=== PATIENT | female | born 1950 | race Caucasian/White ===

== ENCOUNTER 2024-06-21 08:58 | Emergency (ER) | payer MEDICARE, SELFPAY ==
[2024-06-21 09:17] VITALS: BP 151/84; PULSE 63; RESP 20; TEMP 36.6; O2SAT 99
--- NOTE | 2024-06-21 09:29 | ED_ITS ---
HPI - General Adult General Chief complaint: Upper Respiratory Infection Stated complaint: flu like symptoms Time Seen by Provider: 06/21/24 09:29 Source: patient Mode of arrival: ambulatory Limitations: no limitations History of Present Illness HPI narrative: 74-year-old female patient presents to the [facility] with complaints of flu- like symptoms for the past 5 days. Patient states she has had body aches and chills but denies any fevers she is aware of. Patient states she has had a lot of sinus congestion, runny nose, coughing. Denies sore throat. Denies ear pain. Denies any chest pain shortness of breath. Denies any abdominal pain, nausea, vomiting or diarrhea. Related Data Home Medications ?Medication ?Instructions ?Recorded ?Confirmed ?Last Taken ?Type cholecalciferol (vitamin D3) 50 50 mcg PO DAILY 12/05/22 03/03/24 Unknown History mcg (2,000 unit) tablet Allergies Allergy/AdvReac Type Severity Reaction Status Date / Time prochlorperazine AdvReac Severe Unknown Verified 06/21/24 09:16 promethazine AdvReac Severe Unknown Verified 06/21/24 09:16 Eweanub-VTC-HxB Reductase AdvReac Intermediate Muscle Pain Verified 06/21/24 09:16 Inhibitor COMPAZINE AdvReac Severe neurologica Uncoded 06/21/24 09:16 l dermerol AdvReac Severe Nausea and Uncoded 06/21/24 09:16 Vomiting Review of Systems Review of Systems: CONSTITUTIONAL: Denies fever, Positive body aches and chills, denies sweats. EYES: Denies visual changes, redness, or discharge. ENT: positive rhinorrhea, congestion, denies sore throat, or otalgia. CARDIOVASCULAR: Denies chest pain, palpitations, or edema. RESPIRATORY: positive cough , denies dyspnea. GASTROINTESTINAL: Denies abdominal pain, nausea, vomiting, or diarrhea. GENITOURINARY: Denies dysuria or hematuria. SKIN: Denies rash or itching. MUSCULOSKELETAL: Denies back pain, joint pain, or myalgia. NEUROLOGIC: positive headache, denies numbness, or weakness. PSYCHIATRIC: Denies anxiety or depression. [facility] Past Medical History Medical History Dyslipidemia History of cataract Acute hemorrhoid Edema Vertigo 1992 started GERD (gastroesophageal reflux disease) Peripheral neuropathy Anxiety Depression 1987 Surgical History Surgical History History of foot surgery neuroma right foot 2018 History of bunionectomy of right great toe 2006 History of hysterectomy with bilateral oophorectomy 2000 History of tubal ligation 1982 History of appendectomy 1964 History of tonsillectomy 1953 History of bilateral cataract extraction 2011 S/P cholecystectomy 1983 S/P carpal tunnel release 1995, 2000 History of gastric stapling 1979 Social History Social History Social History: somewhat confident with medical forms 02/25/24 Smoking packs per day: 1 Smoking cigarettes per day: 20.0 Years smoked: 20 Smoking pack-years: 20.00 Smoking status: Former smoker Tobacco type: cigarettes Second hand tobacco smoke exposure: Yes Alcohol intake: former Substance use: never Substance use type: does not use Do You Feel Safe in your Home?: Yes Lack of Transportation: No Lack of Food: Never True Current Housing: I Have Housing Concerned About Future Housing: No Difficulty Paying Gas/Electric Bills: No Difficulty Paying for Meds: No Currently Unemployed: No Education: High School Diploma/GED Difficulty w/ Childcare or Family Care: No Living arrangements: with family Occupation/Education: retired Gender identity (if verbalized by the patient): Female Sexual Orientation (if Verbalized by the Patient): Straight or Heterosexual Comments At the time of my signature I agree with nursing past medical history, surgical, social, and family history. There is no relevant family history pertinent to the presenting complaint. Exam Narrative: GENERAL: Well-appearing, well-nourished, and in no acute distress. HEAD: Normocephalic, atraumatic. EYES: PERRLA and EOMI. ENT: Nares with erythema edema noted bilaterally, no rhinorrhea or epistaxis. Mucous membranes moist. posterior pharynx with some postnasal drip present, no t onsillar enlargement, no exudates or lesions present. Bilateral TMs are clear no erythema or foreign bodies the canal. NECK: Supple. No lymphadenopathy CHEST: Clear to auscultation. No respiratory distress. Patient able talk in clear complete sentences. HEART: Regular rate and rhythm. No murmur heard. Normal peripheral pulses. ABDOMEN: Soft, nontender, nondistended, normal active bowel sounds. EXTREMITIES: Normal range of motion. No edema. SKIN: Warm, dry, no rash. NEURO: No focal deficits. Alert and oriented x3. Course Course Level of Care: Express Care Visit Reevaluation(s) Reevaluation #1: re-evaluated patient I read negative for COVID a and influenza. Discussed with her this is most likely a viral URI will take couple days to get over and courage her to take yyfw-yep-wmjgnla medications to help with her symptoms. If patient develops worsening symptoms such as high fever, chest pain shortness of breath I have highly recommend that she follow-up with her primary doctor the ER for evaluation Date: 06/21/24 Time: 10:02 Vital Signs Vital signs: Vital Signs Temperature 36.6 C 06/21/24 09:17 Pulse Rate 63 06/21/24 09:17 Respiratory Rate 20 06/21/24 09:17 Blood Pressure 151/84 H 06/21/24 09:17 Pulse Oximetry 99 06/21/24 09:17 Oxygen Delivery Room Air 06/21/24 09:17 Temperature 36.6 C 06/21/24 09:17 Pulse Rate 63 06/21/24 09:17 Respiratory Rate 20 06/21/24 09:17 Blood Pressure 151/84 H 06/21/24 09:17 Pulse Oximetry 99 06/21/24 09:17 Oxygen Delivery Room Air 06/21/24 09:17 vital signs reviewed. The patient has been informed that they may have pre-hypertension or Hypertension based on a BP reading in the department. I recommend that the patient call the primary care provider listed on their discharge instructions or a physician of their choice this week to arrange follow up for further evaluation of possible pre-hypertension or Hypertension Medical Decision Making MDM Narrative Medical decision making narrative: Plan of care patient is to swab her today for COVID and influenza. I will reassess her once this has resulted. Differential Diagnosis Differential Diagnosis: Differential diagnosis: Allergic rhinitis, chronic sinusitis, tonsillitis, acute sinusitis, infectious mononucleosis, seasonal influenza, pertussis, diphtheria, meningococcal disease, viral syndrome, viral bronchitis, RSV, COVID- 19 Vital Signs Vital Signs: Vital Signs Temperature 36.6 C 06/21/24 09:17 Pulse Rate 63 06/21/24 09:17 Respiratory Rate 20 06/21/24 09:17 Blood Pressure 151/84 H 06/21/24 09:17 Pulse Oximetry 99 06/21/24 09:17 Oxygen Delivery Room Air 06/21/24 09:17 Temperature 36.6 C 06/21/24 09:17 Pulse Rate 63 06/21/24 09:17 Respiratory Rate 20 06/21/24 09:17 Blood Pressure 151/84 H 06/21/24 09:17 Pulse Oximetry 99 06/21/24 09:17 Oxygen Delivery Room Air 06/21/24 09:17 Lab Data Labs: Lab Results 06/21/24 Range/Units 09:40 POC Influenza A Ag Negative (Negative) POC Influenza B Ag Negative (Negative) POC SARS CoV-2 Ag Negative (Negative) Critical Care Time Critical Care Time Critical Care Time: No Discharge Plan Discharge Clinical Impression: Viral URI Patient Disposition: Home, Self-Care Condition: Stable Instructions: Antibiotic Form, Viral Syndrome (ED) Additional Instructions: Viral illness may last between 7-12days; antibiotic is NOT recommended at this time. Recommend antihistamine such as Benadryl at night time and Claritin/Zyrtec/Adeola during the day Cough syrup may cause drowsiness; avoid driving or take it at night time. Use inhaler as needed for cough, wheezing, shortness of breath or chest tightness. Also, recommend symptomatic treatment includes: rest, fluids, and increase humidity of the air at home. Recommend Acetaminophen or nonsteroidal anti-inflammatory agents (NSAIDs) as di rected in the bottle to reduce fever and/pain/headache. Avoid smoking/second-hand smoke. Limit visits to areas with large crowds. Please schedule a follow-up visit with your personal physician for further evaluation and treatment within 3-5days. Including recheck and discussion of your blood pressure. If your symptoms persist, change or worsen significantly before you can contact your personal physician then please, without delay, go to the emergency department for further evaluation. Patient Language: Romanian Prescriptions: No Action alprazolam 0.5 mg tablet 0.25 mg PO BID PRN (Reason: anxiety) Qty: 60 1RF gabapentin 400 mg capsule 400 mg PO TID Qty: 180 1RF meclizine 25 mg tablet 12.5 - 25 mg PO TID PRN (Reason: dizziness) Qty: 180 1RF omeprazole 20 mg capsule,delayed release(DR/EC) 20 mg PO DAILY Qty: 90 1RF pramipexole 0.125 mg tablet 0.125 mg PO QHS Qty: 90 1RF rosuvastatin 5 mg tablet 5 mg PO .QOD Qty: 45 1RF cholecalciferol (vitamin D3) 50 mcg (2,000 unit) tablet 50 mcg PO DAILY ezetimibe [Zetia] 10 mg tablet 10 mg PO DAILY Qty: 90 0RF Follow-up/Referrals: Sarah Baker PARadhaC [Primary Care Provider] - Stand Alone Forms: Work/School Release IP Time of Disposition: 10:01
[2024-06-21 10:01] LABS: EDCOVIDSCREEN Negative (Negative); EDINFLUASCREEN Negative (Negative); EDINFLUBSCREEN Negative (Negative)
--- OUTSIDE RECORDS SUMMARY | 2024-06-25 00:30 | XMS_ITS | Patient Health Record ---
Author Organization [facility] Address [address] [place] [address] Care Team Providers Care Web Content Director Name Role Phone Mike OROZCO, Jaguar Primary Care Provider Unavailab brad MEDRANO MD, KRISTY Unavailable Bethany Ceballos Unavailable Unavailable ALLERGIES Allergen (clinical drug ingredient) Drug/Non Drug Allergy documented on EMR Reaction Allergy Type Onset Date Status meperidine Demerol Unknown Drug Allergy Active Compazine Unknown Drug Allergy Active REASON FOR REFERRAL No Information MEDICATIONS Medication SIG (Take, Route, Frequency, Duration) Notes Start Date End Date Status Probiotic Multi-Enzyme - as directed Orally Active Tums Extra Strength 750 750 MG 1 tablet Orally Once a day for 30 day(s) Active Multivitamin Active Simethicone 125 MG 1 tablet after meals and at bedtime as needed Orally Four times a day Active Magnesium 250 MG 1 tablet with a meal Orally Once a day for 30 day(s) Active Gabapentin 400 MG 1 capsule Orally TID for 30 day(s) Active Benadryl Active Meclizine HCl 25 MG 0.5-1 tab Orally TID for 30 day(s) Active Potassium 99 MG 1 tablet Orally Once a day for 30 day(s) Active Omeprazole 40 MG 1 capsule Orally Onc e a day for 30 day(s) Active Flax Seed Oil 1000 MG as directed Orally Active Furosemide 40 MG 1 tablet Orally Once a day for 30 day(s) Active Hair Skin Nails - as directed Orally Active Restasis 0.05 % 1 drop into affected eye Ophthalmic Twice a day Active Vitamin B12 Active Xanax 0.5 MG 1 tablet Orally Twic e a day Active Vitamin B Complex Ac tive SOCIAL HISTORY Tobacco Use: Social History Observation Description Date Details (start date - stop date) Former Smoker NA - NA Sex Assigned At : Social History Observation Description Sex Assigned At Unknown Tobacco Use/Smoking Question Answer Notes Are you a former smoker How long has it been since y ou last smoked? > 10 years Additional Findings: Tobacco Non-User Ex -moderate cigarette smoker (10-19/day) PLAN OF TREATMENT No Information Insurance Providers Payer Name Payer Address Payer Phone Subscriber Number Group Number Insured Name Patient Relationship to Insured Coverage Start Date Coverage End Date [place] Medicare [address] [place], [place] [id number] Arlet Billings Self - patient is the insured [facility] Supp[facility] [address] [place], [place] [id number] Arlet Billings Self - patient is the insured [place] [address] [address] [place], [place] [id number] Arlet Billings Self - patient is the insured MEDICAL (GENERAL) HISTORY Medical History History ICD Code Anxiety Depression Hypercholeterolemia Gallbladder disease Neuropathy Hemorrhoids Morbid obesity s/p weight loss surgery i n 1978 Surgical History Surgery Date(Month/Year) Tonsillectomy Appendectomy Gastroplasty (w/metal band around stomac h per patient) 1978 Tubal ligation Cholecystectomy Carpal tunnel release x 3 Hysterectomy Colonoscopy 2004 Hernia surgery Bunionectomy Cataracts
--- OUTSIDE RECORDS SUMMARY | 2024-06-25 00:30 | XMS_ITS | Encounter Summary ---
Author Organization [facility] Address [address] [place] [address]. [place], [place] [address] [place] [address] Care Team Providers Care Retail Chain Store Area Supervisor Name Role Phone Jaguar Mckeon MD Primary Care Provider [phone] Encounter Details Date Type Department Care Team (Latest Contact Info) Description 07/27/2021 Travel Social History Tobacco Use Types Packs/Day Years Used Date Smoking Tobacco: Never Assessed Comments Unknown Sex and Gender Information Value Date Recorded Sex Assigned at Not on file Legal Sex Female 8:30 PM CDT Gender Identity Female 09/21/2021 5:07 AM CDT Sexual Orientation Straight 09/21/2021 5: 07 AM CDT COVID-19 Exposure Response Date Recorded In the last month, have you been in contact with someone who was confirmed or suspected to have Coronavirus / COVID-19? 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
--- OUTSIDE RECORDS SUMMARY | 2024-06-25 00:30 | XMS_ITS | Encounter Summary ---
Author Organization [facility] Address [address] [place] [address]. [place], [place] [address] [place] [address] Care Team Providers Care Hot Mill Supervisor Name Role Phone Jaguar Mckeon MD Primary Care Provider [phone] Encounter Details Date Type Department Care Team (Latest Contact Info) Description 05/01/2024 Travel Social History Tobacco Use Types Packs/Day Years Used Date Smoking Tobacco: Never Assessed Comments Unknown Sex and Gender Information Value Date Recorded Sex Assigned at Not on file Legal Sex Female 8:30 PM CDT Gender Identity Female 09/21/2021 5:07 AM CDT Sexual Orientation Straight 09/21/2021 5: 07 AM CDT documented as of this encounter Plan of Treatment Not on file documented as of this encounter Visit Diagnoses Not on filedocumented in this encounter Care Teams Hot Mill Supervisor Relationship Specialty Start Date End Date Jaguar Mckeon MD [address] [place] [address] PCP - General INTERNAL MEDICINE 03/21/21 documented as of this encounter
--- OUTSIDE RECORDS SUMMARY | 2024-06-25 00:30 | XMS_ITS | Encounter Summary ---
Author Organization [facility] Address [address] [place] [address]. [place], [place] [address] [place] [address] Care Team Providers Care Biomedical Engineering Internship Name Role Phone Jaguar Mckeon MD Primary Care Provider [phone] Encounter Details Date Type Department Care Team (Latest Contact Info) Description 07/06/2021 Travel Social History Tobacco Use Types Packs/Day [...] have Coronavirus / COVID-19? No / Unsure 07/06/2021 3:51 PM HVAC REFRIGERATION TECHNICIAN documented as of this encounter Plan of Treatment Not on file documented as of this encounter Visit Diagnoses Not on filedocumented in this encounter Care Teams Biomedical Engineering Internship Relationship Specialty Start Date End Date Jaguar Mckeon MD [address] [place] [address] PCP - General INTERNAL MEDICINE 03/21/21 documented as of this encounter
--- OUTSIDE RECORDS SUMMARY | 2024-06-25 00:30 | XMS_ITS | Encounter Summary ---
Author Organization [facility] Address [address] [place] [address]. [place], [place] [address] [place] [address] Care Team Providers Care Barking Machine Feeder Name Role Phone Jaguar Mckeon MD Primary Care Provider [phone] Encounter Details Date Type Department Care Team (Latest Contact Info) Description 08/06/2023 Travel Social History Tobacco Use Types Packs/Day [...] on filedocumented in this encounter Care Teams Barking Machine Feeder Relationship Specialty Start Date End Date Jaguar Mckeon MD [address] [place] [address] PCP - General INTERNAL MEDICINE 03/21/21 documented as of this encounter
--- OUTSIDE RECORDS SUMMARY | 2024-06-25 00:30 | XMS_ITS | Encounter Summary ---
Author Organization [facility] Address [address] [place] [address]. [place], [place] [address] [place] [address] Care Team Providers Care Pit Worker Power Shovel Name Role Phone Jaguar Mckeon MD Primary Care Provider [phone] Encounter Details Date Type Department Care Team (Latest Contact Info) Description 09/21/2021 Travel Social History Tobacco Use Types Packs/Day Years Used Date Smoking Tobacco: Never Assessed Comments Unknown Sex and Gender Information Value Date Recorded Sex Assigned at Not on file Legal Sex Female 8:30 PM CDT Gender Identity Female 09/21/2021 5:07 AM CDT Sexual Orientation Straight 09/21/2021 5: 07 AM CDT COVID-19 Exposure Response Date Recorded In the last 10 days, have yo u been in contact with someone who was confirmed or suspected to have Coronavirus/COVID-19? No / Unsure 09/21/2021 12:05 PM CDT documented as of this encounter Plan of Treatment Not on file documented as of this encounter Visit Diagnoses Not on filedocumented in this encounter Care Teams Pit Worker Power Shovel Relationship Specialty Start Date End Date Jaguar Mckeon MD [address] [place] [address] PCP - General INTERNAL MEDICINE 03/21/21 documented as of this encounter
--- OUTSIDE RECORDS SUMMARY | 2024-06-25 00:30 | XMS_ITS | Encounter Summary ---
Author Organization [facility] Address [address] [place] [address]. [place], [place] [address] [place] [address] Care Team Providers Care Health Information Coder Name Role Phone Jaguar Mckeon MD Primary Care Provider [phone] Reason for Referral * Imaging (Routine) - New Request Specialty Diagnoses / Procedures Referred By Contac t Referred To Contact RADIOLOGY Diagnoses Other primary ovarian failure Procedures BONE DENSITY/DEXA Sarah Miranda PA-C [address] [place] [address] Phone: tel: fax: Referral ID Status Reason Start Date Expiration Date V isits Requested Visits Authorized [id number] New Request 03/03/2024 03/03/2025 1 1 Reason for Visit * Imaging (Routine) - New Request Specialty Diagnoses / Procedures Referred By Contac t Referred To Contact RADIOLOGY Diagnoses Other primary ovarian failure Procedures BONE DENSITY/DEXA Sarah Miranda PA-C [address] [place] [address] Phone: tel: fax: Referral ID Status Reason Start Date Expiration Date V isits Requested Visits Authorized [id number] New Request 03/03/2024 03/03/2025 1 1 Encounter Details Date Type Department Care Team (Latest Contact Info) Description 05/01/2024 12:38 PM CDT - 05/01/2024 11:59 PM CDT Hospital Encounter [facility] [id number] [place] [address] Sarah Miranda PA-C [address] [place] [address] Discharge Disposition: Home or Self Care (Routine Discharge) Social History Tobacco Use Types Packs/Day Years [...] on file documented as of this encounter Procedures Procedure Name Priority Date/Time Associated Diagnosis Comments BONE DENSITY/DEXA Routine 05/01/2024 1:1 0 PM CDT Other primary ovarian failure documented in this encounter Results * BONE DENSITY/DEXA (05/01/2024 1:10 PM CDT) Anatomical Region Laterality Modality Bone Bone Density 05/01/2024 9:47 PM CDT Impressions 05/01/2024 9:48 PM CDT IMPRESSION: WHO Classification: Normal RECOMMENDATIONS: All patients should ensure an adequate intake of dietary calcium and vitamin D. The NOF recommend adults under the age of 50 need 1000 mg of calcium and 400-800 IU of vitamin D daily. Effective therapy for the prevention and treatment of osteoporosis include bisphosphonates. Follow-up: People with diagnosed cases of osteoporosis or at high risk for fracture should have regular bone mineral density test. For patients eligible for Medicare, routine testing is allowed once every 2 years. Testing frequency can be increased to one year for patients who have rapidly progressing disease, those who are receiving or discontinuing medical therapy to restore bone mass, or have additional risk factors. Referred By: SARAH MIRANDA Interpreted By: Jey Dorado MD, 05/01/2024 9:47 PM Narrative 05/01/2024 9:48 PM CDT [address] [place] [address] EXAMINATION: BONE DENSITY/DEXA INDICATIONS: Other primary ovarian failure TECHNIQUE: DEXA bone mineral density evaluation was performed in the AP projection over the lumbar spine and both hips utilizing standard imaging techniques. ASSESSMENT: The BMD measured at the AP spine L1-L4 is 0.964 g/cm? with a T-score of -0.8. ?? The BMD measured at the left femoral neck is 0.759 g/cm? with a T-score of -0.8. The BMD measured at the left hip is 0.946 g/cm? with a T-score of 0.0. ?? The BMD measured at the right femoral neck is 0.744 g/cm? with a T-score of - 0.9. ?? The BMD measured at the right hip is 0.935 g/cm? with a T-score of -0.1. ?? FRAX 10-year fracture risk: Major Osteoporotic Fracture: 9.5% Hip Fracture: 1.5% Procedure Note Jey Doardo MD - 05/01/2024 [facility] [address] [facility] [place] [address] EXAMINATION: BONE DENSITY/DEXA INDICATIONS: Other primary ovarian failure TECHNIQUE: DEXA bone mineral density evaluation was performed in the APprojection over the lumbar spine and both hips utilizing standard imagingtechniques. ASSESSMENT: The BMD measured at the AP spine L1-L4 is 0.964 g/cm? with a T-score of-0.8. The BMD measured at the left femoral neck is 0.759 g/cm? with a T-score of-0.8. The BMD measured at the left hip is 0.946 g/cm? with a T-score of 0.0. The BMD measured at the right femoral neck is 0.744 g/cm? with a T-scoreof -0.9. The BMD measured at the right hip is 0.935 g/cm? with a T-score of -0.1. FRAX 10-year fracture risk: Major Osteoporotic Fracture: 9.5% Hip Fracture: 1.5% IMPRESSION: WHO Classification: Normal RECOMMENDATIONS: All patients should ensure an adequate intake of dietary calcium andvitamin D. The NOF recommend adults under the age of 50 need 1000 mg ofcalcium and 400-800 IU of vitamin D daily. Effective therapy for theprevention and treatment of osteoporosis include bisphosphonates. Follow-up: People with diagnosed cases of osteoporosis or at high risk for fractureshould have regular bone mineral density test. For patients eligible forMedicare, routine testing is allowed once every 2 years. Testing frequencycan be increased to one year for patients who have rapidly progressingdisease, those who are receiving or discontinuing medical therapy torestore bone mass, or have additional risk factors. Referred By: SARAH MIRANDA Interpreted By: Jey Dorado MD, 05/01/2024 9:47 PM us Sarah Miranda PA-C DEXA Final Resu lt documented in this encounter Visit Diagnoses Diagnosis Other primary ovarian failure documented in this encounter Care Teams Health Information Coder Relationship Specialty Start Date End Date Jaguar Mckeon MD [address] [place] [address] PCP - General INTERNAL MEDICINE 03/21/21 documented as of this encounter
--- OUTSIDE RECORDS SUMMARY | 2024-06-25 00:30 | XMS_ITS | Encounter Summary ---
Author Organization [facility] Address [address] [place] [address]. [place], [place] [id number] [place] [address] Care Team Providers Care Replenishment Buyer Name Role Phone Jaguar Mckeon MD Primary Care Provider [phone] Reason for Referral * Imaging (Routine) - Closed Specialty Diagnoses / Procedures Referred By Contac t Referred To Contact RADIOLOGY Diagnoses Osteoporosis Procedures BONE DENSITY/DEXA Samira Neves MD [address] [place] [address] Phone: tel: fax: Referral ID Status Reason Start Date Expiration Date Visits Re quested Visits Authorized [id number] Closed 09/08/2021 10/09/2022 1 1 * Imaging (Routine) - Closed Specialty Diagnoses / Procedures Referred By Contac t Referred To Contact RADIOLOGY Diagnoses Neck pain Procedures MRI CERV SPINE WO CON Samira Neves MD [address] [place] [address] Phone: tel: fax: Referral ID Status Reason Start Date Expiration Date Visits Re quested Visits Authorized [id number] Closed 09/08/2021 10/09/2022 1 1 * Imaging (Routine) - Closed Specialty Diagnoses / Procedures Referred By Contac t Referred To Contact RADIOLOGY Diagnoses Neck pain Benign head tremor Procedures MRI BRAIN WO CON Samira Neves MD [address] [place] [address] Phone: tel: fax: Referral ID Status Reason Start Date Expiration Date Visits Re quested Visits Authorized [id number] Closed 09/08/2021 10/09/2022 1 1 Reason for Visit * Imaging (Routine) - Closed Specialty Diagnoses / Procedures Referred By Contac t Referred To Contact RADIOLOGY Diagnoses Neck pain Benign head tremor Procedures MRI BRAIN WO CON Samira Neves MD [address] [place] [address] Phone: tel: fax: Referral ID Status Reason Start Date Expiration Date Visits Re quested Visits Authorized [id number] Closed 09/08/2021 10/09/2022 1 1 Encounter Details Date Type Department Care Team (Latest Contact Info) Description 09/21/2021 12:06 PM CDT - 09/21/2021 11:59 PM CDT Hospital Encounter [facility] [address] [place] [address] Samira Neves MD [address] [place] [address] Discharge Disposition: Home or Self Care (Routine [...] Date/Time Associated Diagnosis Comments BONE DENSITY/DEXA Routine 09/21/2021 2:0 0 PM CDT Osteoporosis MRI CERV SPINE WO CON Routine 09/21/2021 1:25 PM CDT Neck pain MRI BRAIN WO CON Routine 09/21/2021 1:16 PM CDT Neck pain Benign head tremor documented in this encounter Results * BONE DENSITY/DEXA (09/21/2021 2:00 PM CDT) Anatomical Region Laterality Modality Bone Bone Density 09/21/2021 2:21 PM CDT Narrative 09/21/2021 2:22 PM CDT IMAGING STUDIES: BONE DENSITY/DEXA ??DATE: 09/21/2021 1:26 PM CLINICAL HISTORY: Osteoporosis ?? . ??71-year-old female with menopause at age 45. No calcium therapy. FINDINGS: LUMBAR SPINE L2-L4: BMD: 0.949 g/sq cm T-SCORE: ??-1.2 WHO CLASSIFICATION: Mild osteopenia FRACTURE RISK: ??Low LEFT FEMORAL NECK: BMD: ??0.812. T-SCORE: -0.3 WHO CLASSIFICATION: Normal young adult range FRACTURE RISK: Very low Recommendation. Instigation of calcium replacement therapy with repeat imaging in 2 years Ordered By: SAMIRA NEVES Interpreted By: Lalito Rivas, 09/21/2021 2:21 PM Procedure Note Rafael Rivas MD - 09/21/2021 IMAGING STUDIES: BONE DENSITY/DEXA DATE: 09/21/2021 1:26 PM CLINICAL HISTORY: Osteoporosis . 71-year-old female withmenopause at age 45. No calcium therapy. FINDINGS: LUMBAR SPINE L2-L4: BMD: 0.949 g/sq cm T-SCORE: -1.2 WHO CLASSIFICATION: Mild osteopenia FRACTURE RISK: Low LEFT FEMORAL NECK: BMD: 0.812. T-SCORE: -0.3 WHO CLASSIFICATION: Normal young adult range FRACTURE RISK: Very low Recommendation. Instigation of calcium replacement therapy with repeatimaging in 2 years Ordered By: SAMIRA NEVES Interpreted By: Lalito Rivas, 09/21/2021 2:21 PM us Samira Neves MD DEXA Final Result * MRI CERV SPINE WO CON (09/21/2021 1:25 PM CDT) Anatomical Region Laterality Modality Spine Magnetic Resonan ce 09/21/2021 2:54 PM CDT Impressions 09/21/2021 3:11 PM CDT IMPRESSION: 1. ??Development of mild spinal stenosis at C5-6 and C6-C7 as detailed above. No disc herniation at these sites. Neural foramen narrowing noted. 2. ??Development of small left paracentral disc herniation at C7-T1. No spinal stenosis. 3. ??Grossly normal signal within the cervical spinal cord. No paraspinal lesions. Ordered By: SAMIRA NEVES Interpreted By: Lalito Rivas, 09/21/2021 2:54 PM Narrative 09/21/2021 3:11 PM CDT IMAGING STUDIES: ??MRI CERV SPINE WO CON ?DATE: ??09/21/2021 12:47 PM INDICATION: ??Neck pain ?? . ??Vertigo. COMPARISON: ??04/12/2009. Current exam is limited due to patient motion. FINDINGS: 1. ??The vertebral bodies have a grossly normal height. Moderate multilevel endplate and facet joint degenerative change with mild advancement since prior exam. Multilevel disc dehydration. Grossly normal signal within the cervical spinal cord and posterior fossa. No neck mass.. . 2 ??At C2-C3: ??No disc herniation or spinal stenosis. Bilateral neural foramen are patent. 3 ??At C3-C4: Normal disc bulge without disc herniation or spinal stenosis. Bilateral neural foramen are patent. 4 ??At C4-C5: Mild disc bulge without disc herniation or spinal stenosis. Right- sided neural foramen is patent. Development of 25-50% left-sided neural foramen narrowing due to degenerative change. 5 ??At C5-C6: Mild increase in posterior disc/ossify complex. Mild spinal stenosis has developed. Minor 10% bilateral neural foramen narrowing due to degenerative change. 6 ??At C6-C7: Mild disc/ossify complex without disc herniation. Mild ligament of flavum hypertrophy. Development of mild spinal stenosis. 25% bilateral neural foramen narrowing due to degenerative change. 7 ??At C7-T1: Development of small left paracentral disc herniation with minimal impression upon the anterior thecal sac. No spinal stenosis. This is of doubtful clinical significance. Bilateral neural foramen are patent. Procedure Note Rafael Rivas MD - 09/21/2021 IMAGING STUDIES: MRI CERV SPINE WO CONDATE: 09/21/2021 12:47 PM INDICATION: Neck pain . Vertigo. COMPARISON: 04/12/2009. Current exam is limited due to patient motion. FINDINGS: 1. The vertebral bodies have a grossly normal height. Moderate multilevelendplate and facet joint degenerative change with mild advancement sinceprior exam. Multilevel disc dehydration. Grossly normal signal within thecervical spinal cord and posterior fossa. No neck mass.. . 2 At C2-C3: No disc herniation or spinal stenosis. Bilateral neuralforamen are patent. 3 At C3-C4: Normal disc bulge without disc herniation or spinal stenosis.Bilateral neural foramen are patent. 4 At C4-C5: Mild disc bulge without disc herniation or spinal stenosis.Right- sided neural foramen is patent. Development of 25-50% left-sidedneural foramen narrowing due to degenerative change. 5 At C5-C6: Mild increase in posterior disc/ossify complex. Mild spinalstenosis has developed. Minor 10% bilateral neural foramen narrowing dueto degenerative change. 6 At C6-C7: Mild disc/ossify complex without disc herniation. Mildligament of flavum hypertrophy. Development of mild spinal stenosis. 25%bilateral neural foramen narrowing due to degenerative change. 7 At C7-T1: Development of small left paracentral disc herniation withminimal impression upon the anterior thecal sac. No spinal stenosis. Thisis of doubtful clinical significance. Bilateral neural foramen arepatent. IMPRESSION: 1. Development of mild spinal stenosis at C5-6 and C6-C7 as detailedabove. No disc herniation at these sites. Neural foramen narrowingnoted. 2. Development of small left paracentral disc herniation at C7-T1. Nospinal stenosis. 3. Grossly normal signal within the cervical spinal cord. No paraspinallesions. Ordered By: SAMIRA NEVES Interpreted By: Lalito Rivas, 09/21/2021 2:54 PM us Samira Neves MD MRI Final Result * MRI BRAIN WO CON (09/21/2021 1:16 PM CDT) Anatomical Region Laterality Modality Head Magnetic Resonan ce 09/21/2021 2:22 PM CDT Impressions 09/21/2021 2:33 PM CDT IMPRESSION: 1. ??No acute process. No evidence of intracranial mass or acute major vessel infarct 2. Ventricular system is symmetric without evidence of midline shift or mass effect. Grossly normal flow voids within the intracranial portions of the vertebrobasilar system and internal carotid arteries in their proximal portions. 3. No gross abnormality within the brainstem or posterior fossa.Mild small vessel ischemic change and brain volume loss consistent with the patient's age. 4. ??Midline structures are within normal limits. Normal thickness to the corpus callosum. Ordered By: SAMIRA NEVES Interpreted By: Lalito Rivas, 09/21/2021 2:22 PM Narrative 09/21/2021 2:33 PM CDT IMAGING STUDIES: MRI BRAIN WO CON ? DATE: 09/21/2021 12:47 PM CLINICAL HISTORY: Benign head tremor ?? . ??Vertigo. Neck pain COMPARISON: No Comparisons. Procedure Note Rafael Rivas MD - 09/21/2021 IMAGING STUDIES: MRI BRAIN WO CON DATE: 09/21/2021 12:47 PM CLINICAL HISTORY: Benign head tremor . Vertigo. Neck pain COMPARISON: No Comparisons. IMPRESSION: 1. No acute process. No evidence of intracranial mass or acute majorvessel infarct 2. Ventricular system is symmetric without evidence of midline shift ormass effect. Grossly normal flow voids within the intracranial portions ofthe vertebrobasilar system and internal carotid arteries in their proximalportions. 3. No gross abnormality within the brainstem or posterior fossa.Mild smallvessel ischemic change and brain volume loss consistent with the patient'darvin. 4. Midline structures are within normal limits. Normal thickness to thecorpus callosum. Ordered By: SAMIRA NEVES Interpreted By: Lalito Rivas, 09/21/2021 2:22 PM Samira Neves MD MRI Final Result documented in this encounter Visit Diagnoses Diagnosis Neck pain Cervicalgia Benign head tremor Essential and other specified forms of tremor Osteoporosis Osteoporosis, unspecified documented in this encounter Care Teams Replenishment Buyer Relationship Specialty Start Date End Date Jaguar Mckeon MD [address] [place] [id number] PCP - General INTERNAL MEDICINE 03/21/21 documented as of this encounter
--- OUTSIDE RECORDS SUMMARY | 2024-06-25 00:30 | XMS_ITS | Encounter Summary ---
Author Organization [facility] Address [address] [place] [address]. [place] [address] [place] [address] Care Team Providers Care Vegetable Loader Machine Operator Name Role Phone Jaguar Mckeon MD Primary Care Provider [phone] Reason for Visit * Reason Onset Date Comments Error 05/09/2022 Encounter Details Date Type Department Care Team (Late st Contact Info) Description 05/09/2022 [facility] Documentation [facility] [address] [place] [address] Sarah Baker PA-C [address] [place] [address] [address] [place] [address] Error Social History Tobacco Use Types Packs/Day Years Used Date Smoking Tobacco: Never Assessed Comments Unknown Sex and Gender Information Value Date Recorded Sex Assigned at Not on file Legal Sex Female 8:30 PM CDT Gender Identity Female 09/21/2021 5:07 AM CDT Sexual Orientation Straight 09/21/2021 5: 07 AM CDT documented as of this encounter Progress Notes * Sarah Baker PA-C - 05/09/2022 4:25 PM CDT This encounter was in created in error. ERECTOR documented in this encounter Plan of Treatment Not on file documented as of this encounter Visit Diagnoses Not on filedocumented in this encounter Care Teams Vegetable Loader Machine Operator Relationship Specialty Start Date End Date Jaguar Mckeon MD [address] [place] [address] PCP - General INTERNAL MEDICINE 03/21/21 documented as of this encounter
--- OUTSIDE RECORDS SUMMARY | 2024-06-25 00:30 | XMS_ITS | Encounter Summary ---
Author Organization [facility] Address [address] [place] [address]. [place] [address] [place] [address] Care Team Providers Care Mine Safety Manager Name Role Phone Jaguar Mckeon MD Primary Care Provider [phone] Encounter Details Date Type Department Care Team (Latest Contact Info) Description 08/06/2023 11:05 AM DATA ANALYTICS ANALYST - 08/06/2023 11:59 PM DATA ANALYTICS ANALYST Hospital Encounter [facility] [address] [place] [address] Taina Hayden MD [address] [place] [address] Discharge Disposition: Home or Self [...] Procedure Name Priority Date/Time Associated Diagnosis Comments BASIC METABOLIC PANEL Routine 08/06/2023 11:17 AM DATA ANALYTICS ANALYST Encounter for therapeutic drug monitoring HEPATIC FUNCTION PANEL Routine 08/06/2023 11:17 AM DATA ANALYTICS ANALYST Encounter for therapeutic drug monitoring CBC W/DIFF AUTOMATED Routine 08/06/2023 11:17 AM DATA ANALYTICS ANALYST Encounter for therapeutic drug monitoring documented in this encounter Results * (ABNORMAL) HEPATIC FUNCTION PANEL (08/06/2023 11:17 AM DATA ANALYTICS ANALYST) TOTAL PROTEIN S/P/B 7.0 6.4 - 8.2 G/DL 08/06/2023 11:56 AM [facility] ALBUMIN S/P/B 3.2(L) 3.4 - 5.0 G/DL 08/06/2023 11:56 AM [facility] BILIRUBIN TOTAL S/P/B 0.4 0.2 - 1.2 MG/DL 08/06/2023 11:56 AM [facility] BILIRUBIN DIRECT S/P/B 0.1 0.0 - 0.20 MG/DL 08/06/2023 11:56 AM [facility] BILIRUBIN INDIRECT S/P/B 0.3 0.0 - 0.9 MG/DL 08/06/2023 11:56 AM [facility] ALKALINE PHOSPHATASE S/P/B 111 50 - 136 U/L 08/06/2023 11:56 AM [facility] AST 22 15 - 37 U/L 08/06/2023 11:56 AM [facility] ALT 27 14 - 55 U/L 08/06/2023 11:56 AM [facility] A/G RATIO 0.8(L) 1.0 - 2.0 RATIO 08/06/2023 11:56 AM [facility] 08/06/2023 11:1 7 AM DATA ANALYTICS ANALYST us Taina Hayden MD LABORATORY Final Result [facility] [address] [place] [address], * (ABNORMAL) BASIC METABOLIC PANEL (08/06/2023 11:17 AM [facility]) [facility] Signature GLUCOSE 96 70 - 99 MG/DL 08/06/2023 11:56 AM [facility] BUN 8 7 - 18 MG/DL 08/06/2023 11:56 AM [facility] CREATININE S/P/B 0.75 0.55 - 1.02 MG/DL 08/06/2023 11:56 AM [facility] SODIUM S/P/B 143 136 - 145 MMOL/L 08/06/2023 11:56 AM [facility] POTASSIUM S/P/B 4.1 3.5 - 5.1 MMOL/L 08/06/2023 11:56 AM [facility] CHLORIDE S/P/B 106 100 - 108 MMOL/L 08/06/2023 11:56 AM [facility] CO2 30.0 21 - 32 MMOL/L 08/06/2023 11:56 AM [facility] CALCIUM S/P/B 8.7 8.5 - 10.1 MG/DL 08/06/2023 11:56 AM [facility] ANION GAP 7.0 5 - 15 MMOL/L 08/06/2023 11:56 AM [facility] BUN CREATININE RATIO 10.7 6 - 26 08/06/2023 11:56 AM [facility] GFR ESTIMATE 83(L) >90 ML/MIN/1.7 3 M2 08/06/2023 11:56 AM [facility] Comment: NOTE: eGFR is not calculated for patients <18 years of age. This is an estimated GFR calculation using the new CKD EPI creatinine equation without race and so does not require a correction factor for race. This estimated GFR should not be used for calculating drug doses. 08/06/2023 11:1 7 AM DATA ANALYTICS ANALYST Taina Hayden MD LABORATORY Final Result [facility] [address] [place] [address], [place] [phone] * (ABNORMAL) CBC W/DIFF AUTOMATED (08/06/2023 11:17 AM DATA ANALYTICS ANALYST) WBC 5.48 4.4 - 11.0 x10'3/uL 08/06/2023 11:41 AM [facility] RBC 3.98(L) 4.50 - 5.10 x10'6/uL 08/06/2023 11:41 AM [facility] HGB 12.4 12.3 - 15.3 G/DL 08/06/2023 11:41 AM [facility] HCT 38.6 35.9 - 44.6 % 08/06/2023 11:41 AM [facility] MCV 97.0(H) 80.0 - 96.0 FL 08/06/2023 11:41 AM [facility] MCH 31.2(H) 25.3 - 30.9 PG 08/06/2023 11:41 AM [facility] MCHC 32.1 31.0 - 34.1 G/DL 08/06/2023 11:41 AM [facility] RDW 12.3(L) 12.4 - 15.1 % 08/06/2023 11:41 AM [facility] PLT 271 151 - 353 x10'3/uL 08/06/2023 11:41 AM [facility] MPV 10.8 9.6 - 12.0 FL 08/06/2023 11:41 AM [facility] RBC MORPHOLOGY NORMAL 08/06/2023 11:41 AM [facility] PLT MORPH. NORMAL 08/06/2023 11:41 AM [facility] WBC MORPHOLOGY NORMAL 08/06/2023 11:41 AM [facility] LYMPHOCYTES % 28.3 15.8 - 45.0 % 08/06/2023 11:41 AM [facility] NEUTROPHILS % 55.1 42.1 - 71.9 % 08/06/2023 11:41 AM [facility] MONOCYTES % 7.8 5.7 - 12.5 % 08/06/2023 11:41 AM [facility] EOSINOPHILS 7.3(H) 0.0 - 5.6 % 08/06/2023 11:41 AM [facility] BASOPHILS 1.3 0.0 - 1.3 % 08/06/2023 11:41 AM [facility] ABS. NEUTROPHILS 3.02 1.40 - 6.00 x10'3/uL 08/06/2023 11:41 AM [facility] IMMATURE GRANS % 0.2 0.0 - 0.5 % 08/06/2023 11:41 AM [facility] ABS. LYMPHOCYTES 1.55 0.80 - 4.70 x10'3/uL 08/06/2023 11:41 AM [facility] 08/06/2023 11:1 7 AM DATA ANALYTICS ANALYST us Taina Hayden MD LABORATORY Final Result [facility] [address] [place] [address], documented in this encounter Visit Diagnoses Diagnosis Encounter for therapeutic drug monitoring documented in this encounter Care Teams Mine Safety Manager Relationship Specialty Start Date End Date Jaguar Mckeon MD [address] [place] [address] PCP - General INTERNAL MEDICINE 03/21/21 documented as of this encounter
--- OUTSIDE RECORDS SUMMARY | 2024-06-25 00:30 | XMS_ITS | Encounter Summary ---
Author Organization [facility] Address [address] [place] [address]. [place] [address] [place] [address] Care Team Providers Care Mental Health Nurse Name Role Phone Jaguar Mckeon MD Primary Care Provider [phone] Encounter Details Date Type Department Care Team (Late st Contact Info) Description 08/06/2023 Orders Only [facility] [address] [place] [address] Taina Hayden MD [address] [place] [address] Social History Tobacco Use Types Packs/Day Years [...] on file documented as of this encounter Results * (ABNORMAL) HEPATIC FUNCTION PANEL (08/06/2023 11:17 AM [facility]) TOTAL PROTEIN S/P/B 7.0 6.4 - 8.2 G/DL 08/06/2023 11:56 AM [facility] DIRECTOR [facility] () [facility] ALBUMIN S/P/B 3.2(L) 3.4 - 5.0 G/DL 08/06/2023 11:56 AM [facility] BILIRUBIN TOTAL S/P/B 0.4 0.2 - 1.2 MG/DL 08/06/2023 11:56 AM [facility] BILIRUBIN DIRECT S/P/B 0.1 0.0 - 0.20 MG/DL 08/06/2023 11:56 AM [facility] BILIRUBIN INDIRECT S/P/B 0.3 0.0 - 0.9 MG/DL 08/06/2023 11:56 AM [facility] ALKALINE PHOSPHATASE S/P/B 111 50 - 136 U/L 08/06/2023 11:56 AM [facility] AST 22 15 - 37 U/L 08/06/2023 11:56 AM [facility] ALT 27 14 - 55 U/L 08/06/2023 11:56 AM [facility] A/G RATIO 0.8(L) 1.0 - 2.0 RATIO 08/06/2023 11:56 AM [facility] 08/06/2023 11:1 7 AM [facility] us Taina Hayden MD LABORATORY Final Result [facility] [address] [place] [address], [place] [phone] * (ABNORMAL) BASIC METABOLIC PANEL (08/06/2023 11:17 AM [facility] DIRECT[facility]) [facility] GLUCOSE 96 70 - 99 MG/DL 08/06/2023 11:56 AM [facility] BUN 8 7 - 18 MG/DL 08/06/2023 11:56 AM [facility] CREATININE S/P/B 0.75 0.55 - 1.02 MG/DL 08/06/2023 11:56 AM [facility] SODIUM S/P/B 143 136 - 145 MMOL/L 08/06/2023 11:56 AM [facility] POTASSIUM S/P/B 4.1 3.5 - 5.1 MMOL/L 08/06/2023 11:56 AM [facility] CHLORIDE S/P/B 106 100 - 108 MMOL/L 08/06/2023 11:56 AM [facility] CO2 30.0 21 - 32 MMOL/L 08/06/2023 11:56 AM [facility] CALCIUM S/P/B 8.7 8.5 - 10.1 MG/DL 08/06/2023 11:56 AM [facility] ANION GAP 7.0 5 - 15 MMOL/L 08/06/2023 11:56 AM [facility] BUN CREATININE RATIO 10.7 6 - 26 08/06/2023 11:56 AM [facility] GFR ESTIMATE 83(L) >90 ML/MIN/1.7 3 M2 08/06/2023 11:56 AM [facility] Comment: NOTE: eGFR is not calculated for patients <18 years of age. This is an estimated GFR calculation using the new CKD EPI creatinine equation without race and so does not require a correction factor for race. This estimated GFR should not be used for calculating drug doses. 08/06/2023 11:1 7 AM [facility] DIRECTOR us Taina Hayden MD LABORATORY Final Result [facility] [address] [place] [address], * (ABNORMAL) CBC W/DIFF AUTOMATED (08/06/2023 11:17 AM [facility]) WBC 5.48 4.4 - 11.0 x10'3/uL 08/06/2023 11:41 AM [facility] RBC 3.98(L) 4.50 - 5.10 x10'6/uL 08/06/2023 11:41 AM [facility] HGB 12.4 12.3 - 15.3 G/DL 08/06/2023 11:41 AM [facility] HCT 38.6 35.9 - 44.6 % 08/06/2023 11:41 AM [facility] MCV 97.0(H) 80.0 - 96.0 FL 08/06/2023 11:41 AM [facility] MCH 31.2(H) 25.3 - 30.9 PG 08/06/2023 11:41 AM [facility] MCHC 32.1 31.0 - 34.1 G/DL 08/06/2023 11:41 AM [facility] RDW 12.3(L) 12.4 - 15.1 % 08/06/2023 11:41 AM [facility] PLT 271 151 - 353 x10'3/uL 08/06/2023 11:41 AM [facility] MPV 10.8 9.6 - 12.0 FL 08/06/2023 11:41 AM [facility] RBC MORPHOLOGY NORMAL 08/06/2023 11:41 AM [facility] PLT MORPH. NORMAL 08/06/2023 11:41 AM [facility] WBC MORPHOLOGY NORMAL 08/06/2023 11:41 AM [facility] LYMPHOCYTES % 28.3 15.8 - 45.0 % 08/06/2023 11:41 AM [facility] NEUTROPHILS % 55.1 42.1 - 71.9 % 08/06/2023 11:41 AM [facility] MONOCYTES % 7.8 5.7 - 12.5 % 08/06/2023 11:41 AM [facility] EOSINOPHILS 7.3(H) 0.0 - 5.6 % 08/06/2023 11:41 AM [facility] BASOPHILS 1.3 0.0 - 1.3 % 08/06/2023 11:41 AM [facility] ABS. NEUTROPHILS 3.02 1.40 - 6.00 x10'3/uL 08/06/2023 11:41 AM [facility] IMMATURE GRANS % 0.2 0.0 - 0.5 % 08/06/2023 11:41 AM [facility] ABS. LYMPHOCYTES 1.55 0.80 - 4.70 x10'3/uL 08/06/2023 11:41 AM [facility] 08/06/2023 11:1 7 AM [facility] DIRECTOR Taina Hayden MD LABORATORY Final Result [facility] [address] [place] [address], documented in this encounter Visit Diagnoses Diagnosis Encounter for therapeutic drug monitoring- Primary documented in this encounter Care Teams Mental Health Nurse Relationship Specialty Start Date End Date Jaguar Mckeon MD [address] [place] [address] PCP - General INTERNAL MEDICINE 03/21/21 documented as of this encounter
--- OUTSIDE RECORDS SUMMARY | 2024-06-25 00:30 | XMS_ITS | Clinical Summary ---
Author Organization [facility] Address [address] [place] [address]. [place] [address] [place] [address] Care Team Providers Care Performance Engineer Name Role Phone Jaguar Mckeon MD Primary Care Provider Medications No known medications Active Problems Problem Noted Date Diagnosed Date Vertigo 03/21/2021 Cervicalgia 03/21/2021 Encounters Date Type Department Care Team Description 05/01/2024 12:38 PM CDT - 05/01/2024 11:59 PM CDT Hospital Encounter [facility] [address] [place] [address] Sarah Miranda PA-C Discharge Disposition: Home or Self Care (Routine Discharge) 05/01/2024 Travel from Last 3 Months Immunizations Name Administration Dates Next Due MODERNA COVID-19 (12+) MRNA, LNP-S, PF, 100 MCG/ 0.5 ML DOSE 09/17/2020,08/20/2020 Social History Tobacco Use Types Packs/Day Years Used Date Smoking Tobacco: Never Assessed Comments Unknown Sex and Gender Information Value Date Recorded Sex Assigned at Not on file Legal Sex Female 8:30 PM CDT Gender Identity Female 09/21/2021 5:07 AM CDT Sexual Orientation Straight 09/21/2021 5: 07 AM CDT Plan of Treatment Health Maintenance Due Date Last Done Comments Colorectal Cancer Screening Colonoscopy (10 Years) 1948 Hepatitis C 1966 DTaP, Tdap and Td Vaccines ( 1 - Tdap) 1967 Zoster Vaccines (1 of 2) 1998 RSV Immunization or 60+ Years (1 - 1-dose 60+ series) 2008 Annual Medicare Wellness Visit 2013 Pneumococcal Vaccine: 65+ Years (1 of 1 - PCV) 2013 COVID-19 Vaccine (3 - 2023-2 5 season) 2024 09/17/2020, 08/20/2020 Influenza Adult (#1) 2024 03/24/2020 Dexa Scan (General) Completed 05/01/2024, 09/21/2021 Meningococcal Vaccine Aged Out No kyler leidy eligible based on patient's age to complete this topic RSV Immunizations Under 20 Months Aged Out No longer eligible b ased on patient's age to complete this topic Procedures Procedure Name Priority Date/Time Associated Diagnosis Comments BONE DENSITY/DEXA Routine 05/01/2024 1:1 0 PM CDT 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 [address] EXAMINATION: BONE DENSITY/DEXA INDICATIONS: Other primary ovarian [...] 9.5% Hip Fracture: 1.5% Procedure Note Jey Dorado MD - 05/01/2024 [facility] [address] [place] [address] EXAMINATION: BONE DENSITY/DEXA INDICATIONS: Other primary ovarian [...] By: Jey Dorado MD, 05/01/2024 9:47 PM Sarah Miranda PA-C DEXA Final Resu lt from Last 3 Months Insurance MEDICARE AET AETNA Care Teams Performance Engineer Relationship Specialty Start Date End Date Jaguar Mckeon MD [address] [place] [phone] PCP - General INTERNAL MEDICINE 03/21/21
--- OUTSIDE RECORDS SUMMARY | 2024-06-25 00:30 | XMS_ITS | Encounter Summary ---
Author Organization [facility] Address [address] [place] [address]. [place] [address] [place] [address] Care Team Providers Care Electrical Logging Operator Name Role Phone Jaguar Mckeon MD Primary Care Provider [phone] Encounter Details Date Type Department Care Team (Late st Contact Info) Description 07/06/2021 Orders Only [facility] [address] [place] [address] Taina Hayden MD [address] [place] [address] Social History Tobacco Use Types [...] COVID-19? No / Unsure 07/06/2021 3:51 PM MANUFACTURING SPECIALIST documented as of this encounter Plan of Treatment Not on file documented as of this encounter Results * (ABNORMAL) PROTEIN ELECTROPHORESIS URINE RANDOM (07/06/2021 4:18 PM MANUFACTURING SPECIALIST) PROTEIN/CREATININE RATIO MG/G 74 21 - 161 mg/g creat 07/10/2021 5:42 AM MANUFACTURING SPECIALIST [facility] [place] [facility] PROTEIN RANDOM (U) 4(L) 5 - 24 mg/dL 07/10/2021 5:42 AM MANUFACTURING SPECIALIST [facility] [place] CREATININE RANDOM URINE 54 20 - 275 mg/dL 07/10/2021 5:42 AM MANUFACTURING SPECIALIST [facility] ALBUMIN ELECTROPHORESIS (U) 47 % 07/10/2021 5:42 AM MANUFACTURING SPECIALIST [facility] URINE ALPHA1 8 % 07/10/2021 5:42 AM MANUFACTURING SPECIALIST [facility] URINE ALPHA2 19 % 07/10/2021 5:42 AM MANUFACTURING SPECIALIST [facility] BETA GLOBULIN (U) 15 % 022 5:42 AM MANUFACTURING SPECIALIST [facility] GAMMA GLOBULIN (U) 12 % 2021 5:42 AM MANUFACTURING SPECIALIST [facility] [place] [facility] ABNORMAL PROTEIN BAND 1 (U) REPORT 07/10/2021 5:42 AM MANUFACTURING SPECIALIST [facility] Comment: No M-Aureliano detected. ABNORMAL PROTEIN BAND 3 (U) END OF REPORT 07/10/2021 5:42 AM MANUFACTURING SPECIALIST [facility] PROTEIN (ELP) (U) REPORT 5:42 AM MANUFACTURING SPECIALIST [facility] Comment: No abnormal peaks are detected on protein electrophoresis. Test Performed by [employer] [facility], [facility], [id number] [place] [address] Johnathan Ponce M.D., Ph.D., Director of Laboratories , [facility] [id number] URINE SPECIMEN / Unknown 07/06/2021 4:18 PM MANUFACTURING SPECIALIST Taina Hayden MD URINE ORDERABLES Final Result [employer] [place] [id number] [place] [address], * HEMOGLOBIN, GLYCOSYLATED (07/06/2021 4:03 PM MANUFACTURING SPECIALIST) HGB A1C 5.4 <5.7 % 07/06/2021 6:19 PM MANUFACTURING SPECIALIST [facility] Comment: INCREASED RISK OF DIABETES <5.7% ?NON-DIABETES 5.7-6.4% INCREASED RISK FOR FUTURE DIABETES > OR = 6.5 CONSISTENT WITH DIABETES STANDARDS OF MEDICAL CARE IN DIABETES-2010 DIABETES CARE, 33(SUPP 1): S1-S61,2010 07/06/2021 4:03 PM MANUFACTURING SPECIALIST us Taina Hayden MD LABORATORY Final Result Performing Organization Address City/[facility]/ZIP Co de Phone Number [facility] [address] [place] [address], [place] [phone] * C-REACTIVE PROTEIN (07/06/2021 4:03 PM MANUFACTURING SPECIALIST) C-REACTIVE PROTEIN <0.20 <0.9 mg/dL 07/06/2021 5:44 PM MANUFACTURING SPECIALIST [facility] 07/06/2021 4:03 PM MANUFACTURING SPECIALIST us Taina Hayden MD LABORATORY Final Result Performing Organization Address [facility] Co de Phone Number [facility] [address] [place] [address], [place] [phone] * (ABNORMAL) SED RATE, ERYTHROCYTE (ESR) (07/06/2021 4:03 PM MANUFACTURING SPECIALIST) ESR 41(H) 0 - 20 MM/HR 07/06/2021 5:41 PM MANUFACTURING SPECIALIST [facility] 07/06/2021 4:03 PM MANUFACTURING SPECIALIST us Taina Hayden MD LABORATORY Final Result Performing Organization Address City/[facility]/ZIP Co de Phone Number [facility] [address] [place] [address], [place] [phone] * URIC ACID BLOOD (07/06/2021 4:03 PM MANUFACTURING SPECIALIST) URIC ACID 4.5 2.6 - 6.0 MG/DL 07/06/2021 5:44 PM MANUFACTURING SPECIALIST [facility] 07/06/2021 4:03 PM MANUFACTURING SPECIALIST us Taina Hayden MD LABORATORY Final Result [facility] [address] [place] [address], [place] [phone] * CK (CPK) (07/06/2021 4:03 PM MANUFACTURING SPECIALIST) CPK 76 26 - 192 U/L 07/06/2021 5:44 PM MANUFACTURING SPECIALIST [facility] 07/06/2021 4:03 PM MANUFACTURING SPECIALIST us Taina Hayden MD LABORATORY Final Result Performing Organization Address City/[facility]/ZIP Co de Phone Number [facility] [address] [place] [address], [place] [phone] * FERRITIN (07/06/2021 4:03 PM MANUFACTURING SPECIALIST) FERRITIN 131.0 8.0 - 388.0 NG/ML 07/06/2021 5:44 PM MANUFACTURING SPECIALIST [facility] 07/06/2021 4:0 3 PM MANUFACTURING SPECIALIST us Taina Hayden MD LABORATORY Final Result [facility] [address] [place] [address], [place] [phone] * VITAMIN D, 25 [place] (07/06/2021 4:03 PM MANUFACTURING SPECIALIST) Pathologist [facility] VITAMIN D 25 HYDROXY S/P/B 53 30 - 100 NG/ML 07/06/2021 5:17 PM MANUFACTURING SPECIALIST [facility] Comment: ? INTERPRETATION ? DEFICIENT ??<20 ? INSUFFICIENT 20-29 ?SUFFICIENT 30-100 07/06/2021 4:03 PM MANUFACTURING SPECIALIST us Taina Hayden MD LABORATORY Final Result Performing Organization Address [facility]/ZIP Co de Phone Number [facility] [address] [place] [address], [place] [phone] * CYCLIC CITRULLINATED PEPTIDE (CCP)ANTIBODY(IGG) (07/06/2021 4:03 PM MANUFACTURING SPECIALIST) [facility] CITRULLINE PEPTIDE ANTIBODY <16 <20 Units 07/10/2021 12:19 PM MANUFACTURING SPECIALIST [employer] SARAI GIFFORD Comment: Negative: ? <20 Weak Positive: ?20 - 39 Moderate Positive: ?40 - 59 Strong Positive: ?>59 Test Performed by Shine E[place], [employer] [facility] [place], [address] [place] [address] Johnathan Ponce M.D., Ph.D., Director of Laboratories , [facility] [id number] 07/06/2021 4:03 PM MANUFACTURING SPECIALIST us Taina Hayden MD LABORATORY Final Result Performing Organization Address [facility]/ZIP Co de Phone Number [employer] [place] [address] [place], [place] , [place] [phone] * 14-3-3 ETA PROTEIN (07/06/2021 4:03 PM MANUFACTURING SPECIALIST) 14-3-3 ETA PROTEIN <0.2 <0.2 ng/mL 07/15/2021 3:53 PM MANUFACTURING SPECIALIST [employer] SARAI GIFFORD Comment: The 14-3-3eta protein is a marker of synovial inflammation that is released into synovial fluid and peripheral blood in rheumatoid arthritis (RA) and erosive psoriatic arthritis. One in five RF and CCP seronegative early stage RA patients is found to be positive for 14-3-3eta protein. Patients with active joint RA disease have higher values of 14-3-3eta protein than those with inactive RA or psoriasis without arthritis. 14-3-3eta protein has a 93% specificity in patients with RA. Values > or = 0.2 ng/mL are elevated and indicative of RA disease or erosive psoriatic arthritis. Values >0.50 ng/mL are associated with more aggressive RA disease and poorer outcomes. Unlike RF and CCP, 14-3-3eta protein is a therapeutically modifiable marker to monitor response to therapy. A decrease in 14-3-3eta protein in response to DMARDs (disease-modifying antirheumatic drugs) and anti-TNF (tumor necrosis factor) drugs indicates better clinical outcomes; an increase is associated with worse outcomes despite apparent clinical remission. For further information please visit: [email or web address] 517 [email or web address] [email or web address]?[email or web address]-RmArthPnl This test was developed and its analytical performance characteristics have been determined by [facility]. It has not been cleared or approved by FDA. This assay has been validated pursuant to the CLIA regulations and is used for clinical purposes. Test performed by [facility] ? [address], ? [place] [address] ? Contour Grinder: Ora Yu MD,PHD,ROSS Test Reported by Shine [place], [facility], [address] [place], [place] Johnathan Ponce M.D., Ph.D., Director of Laboratories , [facility] [id number] 07/06/2021 4:03 PM MANUFACTURING SPECIALIST us Taina Hayden MD LABORATORY Final Result [employer] [facility] [address] [place] [address], [place] [phone] * RHEUMATOID FACTOR, QUANT (07/06/2021 4:03 PM MANUFACTURING SPECIALIST) Pathologist [facility] RHEUMATOID FACTOR <10 <15 IU/ML 07/06/2021 9:51 PM MANUFACTURING SPECIALIST [facility] 07/06/2021 4:03 PM MANUFACTURING SPECIALIST Taina Hayden MD LABORATORY Final Result Performing Organization Address City/[facility]/ZIP Co de Phone Number [facility] [address] [place] [address], [place] [phone] * CELSO IFA SCRN, WI REFLEX TO TITER (07/06/2021 4:03 PM MANUFACTURING SPECIALIST) Pathologist [facility] CELSO Negative Negative 07/11/2021 11:34 AM MANUFACTURING SPECIALIST [employer] CHACHO MILLER Comment: CELSO IFA is a first line screen for detecting the presence of up to approximately 150 autoantibodies in various autoimmune diseases. A negative CELSO IFA result suggests CELSO-associated autoimmune disease is not present at this time, but is not definitive. If there is high clinical suspicion for Sjogren's Syndrome, testing for anti-SS-A/Ro antibody should be considered. Anti-Diana-1 antibody should be considered for clinically suspected inflammatory myopathies. AC-0: Negative International Consensus on CELSO Patterns https://doi.org/10.1515/tscy-4475-3033 For additional information, please refer to http://education.Quest[employer]ostics.com/faq/BNX962 (This link is being provided for informational/ educational purposes only.) Test Performed by [employer] [facility], [employer], [address] [place] [address] Johnathan Ponce M.D., Ph.D., Director of Laboratories , CLIA [id number] 07/06/2021 4:03 PM MANUFACTURING SPECIALIST us Taina Hayden MD LABORATORY Final Result [facility] [place] [id number] [place] [address], * KAPPA/LAMBDA LIGHT CHAIN, RANDOM URINE (QST) (07/06/2021 4:03 PM MANUFACTURING SPECIALIST) KAPPA, URINE <1.00 <2.00 mg/dL 07/11/2021 3:38 PM MANUFACTURING SPECIALIST [employer] [facility] L[facility] LAMBDA, URINE <1.00 <2.00 mg/dL 07/11/2021 3:38 PM MANUFACTURING SPECIALIST [employer] [place] [facility] COMMENT REPORT 07/11/2021 3:38 PM MANUFACTURING SPECIALIST [facility] Comment: This test measures primarily kappa and lambda light chains that are bound to the heavy chains of IgG, IgA, or IgM in urine, however, some free light chains can also be detected with this method. If free light chain multiple myeloma is suspected, please order free kappa and free lambda light chains for a more accurate measurement of the free light chains. Test performed by [employer] ? [address] [facility], ? [place] [address] ? Contour Grinder: INA STODDARD M.D. Test Reported by [employer], [employer], [address] [place], [place] Johnathan Ponce M.D., Ph.D., Director of Laboratories , CLIA [id number] 07/06/2021 4:03 PM MANUFACTURING SPECIALIST us Taina Hayden MD LABORATORY Final Result Performing Organization Address City/[facility]/ZIP Co de Phone Number [employer] , [place] [phone] * IMMUNOFIXATION, URINE (07/06/2021 4:03 PM MANUFACTURING SPECIALIST) IMMUNOFIXATION URINE REPORT 07/12/2021 12:10 PM MANUFACTURING SPECIALIST [employer] EDWINAllmyappsHOWARD LY Comment: No abnormal bands are detected on immunofixation. Reference Range: No monoclonal proteins detected Test Performed by [employer], [address] [place] [address] Johnathan Ponce M.D., Ph.D., Director of Laboratories , CLIA [id number] URINE SPECIMEN / Unknown 07/06/2021 4:03 PM MANUFACTURING SPECIALIST us Taina Hayden MD URINE ORDERABLES Final Result Performing Organization Address [facility] Co de Phone Number [employer] , [place] [phone] * IMMUNOFIXATION (07/06/2021 4:03 PM MANUFACTURING SPECIALIST) IMMUNOFIXATION SERUM REPORT 07/12/2021 4:25 PM MANUFACTURING SPECIALIST [facility]holdJEFF LY Comment: No abnormal bands are present on immunofixation. Reference Range: No monoclonal proteins detected Test Performed by [employer], [address] [place] [address] Johnathan Ponce M.D., Ph.D., Director of Laboratories , CLIA [id number] 07/06/2021 4:03 PM MANUFACTURING SPECIALIST Taina Hayden MD LABORATORY Final Result [facility] [address] [place] [address], [place] [phone] * PROTEIN, ELECTROPHORESIS (07/06/2021 4:03 PM MANUFACTURING SPECIALIST) TOTAL PROTEIN (ELECTROPHORESIS SERUM) 6.8 6.1 - 8.1 g/dL 07/10/2021 5:51 AM MANUFACTURING SPECIALIST [facility] [place] [facility] ALBUMIN ELECTROPHORESIS S/P/B 3.9 3.8 - 4.8 g/dL 07/10/2021 5:51 AM MANUFACTURING SPECIALIST [facility] [place] [id number] S/P/B 0.3 0.2 - 0.3 g/dL 07/10/2021 5:51 AM MANUFACTURING SPECIALIST [facility] [id number] S/P/B 0.7 0.5 - 0.9 g/dL 07/10/2021 5:51 AM MANUFACTURING SPECIALIST [facility] [place] BETA 1 GLOBULIN S/P/B 0.4 0.4 - 0.6 g/dL 07/10/2021 5:51 AM MANUFACTURING SPECIALIST [facility] [place] BETA 2 GLOBULIN S/P/B 0.4 0.2 - 0.5 g/dL 07/10/2021 5:51 AM MANUFACTURING SPECIALIST [facility] GAMMA GLOBULIN S/P/B 1.1 0.8 - 1.7 g/dL 07/10/2021 5:51 AM MANUFACTURING SPECIALIST [facility] ABNORMAL PROTEIN BAND 1 S/P/B REPORT 07/10/2021 5:51 AM MANUFACTURING SPECIALIST [facility] Comment: No M Aureliano detected. ?Reference Range: None Detected ABNORMAL PROTEIN BAND 3 S/P/B END OF REPORT 07/10/2021 5:51 AM MANUFACTURING SPECIALIST [facility] CHACHO MILLER ELECTROPHORESIS INTERPRETATION REPORT 07/10/2021 5:51 AM MANUFACTURING SPECIALIST [employer] CHACHO MILLER Comment: Normal Electrophoretic Pattern Test Performed by [employer] [facility] [place], [address] [place] [address] Johnathan Ponce M.D., Ph.D., Director of Laboratories , CLIA [id number] 07/06/2021 4:03 PM MANUFACTURING SPECIALIST Taina Hayden MD LABORATORY Final Result Performing Organization Address [facility]/ZIP Co de Phone Number [employer] , [place] [phone] * VITAMIN B6 (07/06/2021 4:03 PM MANUFACTURING SPECIALIST) [facility] VITAMIN B6 S/P/B 13.8 2.1 - 21.7 ng/mL 07/11/2021 9:02 AM MANUFACTURING SPECIALIST [employer] SARAI GIFFORD Comment: Vitamin supplementation within 24 hours prior to blood draw may affect the accuracy of the results. This test was developed and its analytical performance characteristics have been determined by [facility] [place], [place]. It has not been cleared or approved by the U.S. Food and Drug Administration. This assay has been validated pursuant to the CLIA regulations and is used for clinical purposes. Test Performed by [employer]ust[employer] [place], [facility] [place], [address] [place] [address] Johnathan Ponce M.D., Ph.D., Director of Laboratories , CLIA [id number] 07/06/2021 4:03 PM MANUFACTURING SPECIALIST us Taina Hayden MD LABORATORY Final Result Performing Organization Address City/[facility]/ZIP Co de Phone Number [employer] [address] , [place] [phone] * VITAMIN B1 THIAMINE (07/06/2021 4:03 PM MANUFACTURING SPECIALIST) [facility] VITAMIN B1 S/P/B 23 8 - 30 nmol/L 07/11/2021 4:56 AM MANUFACTURING SPECIALIST [employer] EDWINRadhaHOWARD GIFFORD Comment: Vitamin supplementation within 24 hours prior to blood draw may affect the accuracy of the results. This test was developed and its analytical performance characteristics have been determined by [facility] [place], [place]. It has not been cleared or approved by the U.S. Food and Drug Administration. This assay has been validated pursuant to the CLIA regulations and is used for clinical purposes. Test Performed by [employer] [place], [employer], [address] [place] [address] Johnathan Ponce M.D., Ph.D., Director of Laboratories , CLIA [id number] 07/06/2021 4:03 PM MANUFACTURING SPECIALIST Taina Hayden MD LABORATORY Final Result [employer] [address], * ENA2 (SSA & SSB) (07/06/2021 4:03 PM MANUFACTURING SPECIALIST) [facility] SSA ANTIBODY <1.0 07/09/2021 10:22 AM MANUFACTURING SPECIALIST [employer] EDWINHOWARD GIFFORD Comment: ?Reference Range: < 1.0 NEG AI SSB ANTIBODY <1.0 07/09/2021 10:22 AM MANUFACTURING SPECIALIST [employer] [facility] Comment: ?Reference Range: < 1.0 NEG AI Test Performed by [employer] [place], [employer], [address] [place], [place] Johnathan Ponce M.D., Ph.D., Director of Laboratories , CLIA [id number] 07/06/2021 4:03 PM MANUFACTURING SPECIALIST Taina Hayden MD LABORATORY Final Result [facility] [address] [place] [address], [place] [phone] documented in this encounter Visit Diagnoses Diagnosis Sjogren's syndrome ([facility])- Primary Sicca syndrome Fatigue Other malaise and fatigue Arthritis Arthropathy, unspecified, site unspecified Screening for diabetes mellitus Impaired glucose tolerance test Vitamin D deficiency Unspecified vitamin D deficiency Iron deficiency anemia, unspecified documented in this encounter Care Teams Electrical Logging Operator Relationship Specialty Start Date End Date Jaguar Mckeon MD [address] [place] [address] PCP - General INTERNAL MEDICINE 03/21/21 documented as of this encounter
--- OUTSIDE RECORDS SUMMARY | 2024-06-25 00:30 | XMS_ITS | Encounter Summary ---
Author Organization [facility] Address [address] [place] [address]. [place] [address] [place] [address] Care Team Providers Care Residential Sales Consultant Name Role Phone Jaguar Mckeon MD Primary Care Provider [phone] Encounter Details Date Type Department Care Team (Latest Contact Info) Description 07/27/2021 10:50 AM FOREST ECONOMICS PROFESSOR - 07/27/2021 11:59 PM FOREST ECONOMICS PROFESSOR Hospital Encounter [facility] [address] [place] [address] Samira Neves MD [address] [place] [address] Discharge Disposition: Home or Self [...] COVID-19? No / Unsure 07/27/2021 10:43 AM FOREST ECONOMICS PROFESSOR documented as of this encounter Plan of Treatment Not on file documented as of this encounter Procedures Procedure Name Priority Date/Time Associated Diagnosis Comments XR KNEE RT 2V Routine 07/27/2021 11:09 AM FOREST ECONOMICS PROFESSOR Arthritis XR KNEE LT 2V Routine 07/27/2021 11:09 AM FOREST ECONOMICS PROFESSOR Arthritis XR HAND RT 2V Routine 07/27/2021 11:09 AM FOREST ECONOMICS PROFESSOR Arthritis XR HAND LT 2V Routine 07/27/2021 11:09 AM FOREST ECONOMICS PROFESSOR Arthritis documented in this encounter Results * XR HAND RT 2V (07/27/2021 11:09 AM FOREST ECONOMICS PROFESSOR) Anatomical Region Laterality Modality Hand Radiographic Vidhi ging 07/27/2021 11:3 1 AM FOREST ECONOMICS PROFESSOR Impressions 07/27/2021 11:35 AM FOREST ECONOMICS PROFESSOR IMPRESSION: 1. ??Moderate-severe degenerative change at the first CMC joint and DIP joint of index finger. Moderately advanced degenerative change involving the remainder of the DIP joints and IP joint of the thumb. These findings may be degenerative in nature though underlying inflammatory arthropathy with secondary degenerative changes cannot be excluded. Correlate clinically. 2. ??Generalized osteopenia. No obvious erosions or bone destruction. No radiopaque foreign body. No acute fracture or dislocation. 3. ??Mild ulna minus variation with degenerative change at DRUJ. Mild degenerative change at radiocarpal joint. Ordered By: SAMIRA NEVES Interpreted By: Bhaskar Perez, 07/27/2021 11:31 AM Narrative 07/27/2021 11:35 AM FOREST ECONOMICS PROFESSOR EXAMINATION: XR HAND RT 2V EXAM DATE/TIME: 07/27/2021 11:00 AM CLINICAL HISTORY: Pain. COMPARISON: No comparison. Procedure Note Syd Perez MD - 07/27/2021 EXAMINATION: XR HAND RT 2V EXAM DATE/TIME: 07/27/2021 11:00 AM CLINICAL HISTORY: Pain. COMPARISON: No comparison. IMPRESSION: 1. Moderate-severe degenerative change at the first CMC joint and DIPjoint of index finger. Moderately advanced degenerative change involvingthe remainder of the DIP joints and IP joint of the thumb. These findingsmay be degenerative in nature though underlying inflammatory arthropathywith secondary degenerative changes cannot be excluded. Correlateclinically. 2. Generalized osteopenia. No obvious erosions or bone destruction. Noradiopaque foreign body. No acute fracture or dislocation. 3. Mild ulna minus variation with degenerative change at DRUJ. Milddegenerative change at radiocarpal joint. Ordered By: SAMIRA NEVES Interpreted By: Bhaskar Perez, 07/27/2021 11:31 AM Samira Neves MD GENERAL IMAGING Final Result * XR HAND LT 2V (07/27/2021 11:09 AM FOREST ECONOMICS PROFESSOR) Anatomical Region Laterality Modality Hand Radiographic Vidhi ging 07/27/2021 11:2 5 AM FOREST ECONOMICS PROFESSOR Impressions 07/27/2021 11:27 AM FOREST ECONOMICS PROFESSOR IMPRESSION: 1. ??Moderate-severe arthritic changes involving the first CMC and STT joints. Moderately advanced degenerative change involving the DIP joints and IP joint of the thumb. These findings may be degenerative in nature though underlying inflammatory arthritis with secondary degenerative changes cannot be excluded. Correlate clinically. 2. ??Mild generalized osteopenia. No obvious erosions or bone destruction. No radiopaque foreign body. No acute fracture or dislocation. Ordered By: SAMIRA NEVES Interpreted By: Bhaskar Perez, 07/27/2021 11:25 AM Narrative 07/27/2021 11:27 AM FOREST ECONOMICS PROFESSOR EXAMINATION: XR HAND LT 2V EXAM DATE/TIME: 07/27/2021 11:00 AM CLINICAL HISTORY: Pain. COMPARISON: No comparison. Procedure Note Syd Perez MD - 07/27/2021 EXAMINATION: XR HAND LT 2V EXAM DATE/TIME: 07/27/2021 11:00 AM CLINICAL HISTORY: Pain. COMPARISON: No comparison. IMPRESSION: 1. Moderate-severe arthritic changes involving the first CMC and STTjoints. Moderately advanced degenerative change involving the DIP jointsand IP joint of the thumb. These findings may be degenerative in naturethough underlying inflammatory arthritis with secondary degenerativechanges cannot be excluded. Correlate clinically. 2. Mild generalized osteopenia. No obvious erosions or bone destruction.No radiopaque foreign body. No acute fracture or dislocation. Ordered By: SAMIRA NEVES Interpreted By: Bhaskar Perez, 07/27/2021 11:25 AM Samira Neves MD GENERAL IMAGING Final Result * XR KNEE LT 2V (07/27/2021 11:09 AM FOREST ECONOMICS PROFESSOR) Anatomical Region Laterality Modality Knee Radiographic Vidhi ging 07/27/2021 11:2 2 AM FOREST ECONOMICS PROFESSOR Impressions 07/27/2021 11:23 AM FOREST ECONOMICS PROFESSOR IMPRESSION: 1. ??Mild tricompartmental degenerative change, most marked along the medial compartment. 2. ??Mild generalized osteopenia. No apparent fracture or dislocation. No bone destruction. Probable tiny joint effusion. Ordered By: SAMIRA NEVES Interpreted By: Bhaskar Perez, 07/27/2021 11:22 AM Narrative 07/27/2021 11:23 AM FOREST ECONOMICS PROFESSOR EXAMINATION: XR KNEE LT 2V EXAM DATE/TIME: 07/27/2021 11:00 AM CLINICAL HISTORY: Pain. COMPARISON: No comparison. Procedure Note Syd Perez MD - 07/27/2021 EXAMINATION: XR KNEE LT 2V EXAM DATE/TIME: 07/27/2021 11:00 AM CLINICAL HISTORY: Pain. COMPARISON: No comparison. IMPRESSION: 1. Mild tricompartmental degenerative change, most marked along themedial compartment. 2. Mild generalized osteopenia. No apparent fracture or dislocation. Nobone destruction. Probable tiny joint effusion. Ordered By: SAMIRA NEVES Interpreted By: Bhaskar Perez, 07/27/2021 11:22 AM Samira Neves MD GENERAL IMAGING Final Result * XR KNEE RT 2V (07/27/2021 11:09 AM FOREST ECONOMICS PROFESSOR) Anatomical Region Laterality Modality Knee Radiographic Vidhi ging 07/27/2021 11:2 3 AM FOREST ECONOMICS PROFESSOR Impressions 07/27/2021 11:24 AM FOREST ECONOMICS PROFESSOR IMPRESSION: 1. ??Mild narrowing of the medial compartment. Mild generalized osteopenia. 2. ??Examination otherwise unremarkable. No apparent fracture or bone destruction. No evidence of joint effusion. Ordered By: SAMIRA NEVES Interpreted By: Bhaskar Perez, 07/27/2021 11:23 AM Narrative 07/27/2021 11:24 AM FOREST ECONOMICS PROFESSOR EXAMINATION: XR KNEE RT 2V EXAM DATE/TIME: 07/27/2021 11:00 AM CLINICAL HISTORY: Pain. COMPARISON: No comparison. Procedure Note Syd Perez MD - 07/27/2021 EXAMINATION: XR KNEE RT 2V EXAM DATE/TIME: 07/27/2021 11:00 AM CLINICAL HISTORY: Pain. COMPARISON: No comparison. IMPRESSION: 1. Mild narrowing of the medial compartment. Mild generalizedosteopenia. 2. Examination otherwise unremarkable. No apparent fracture or bonedestruction. No evidence of joint effusion. Ordered By: SAMIRA NEVES Interpreted By: Bhaskar Perez, 07/27/2021 11:23 AM Samira Neves MD GENERAL IMAGING Final Result documented in this encounter Visit Diagnoses Diagnosis Arthritis Arthropathy, unspecified, site unspecified documented in this encounter Care Teams Residential Sales Consultant Relationship Specialty Start Date End Date Jaguar Mckeon MD [address] [place] [address] PCP - General INTERNAL MEDICINE 03/21/21 documented as of this encounter
--- OUTSIDE RECORDS SUMMARY | 2024-06-25 00:31 | XMS_ITS | Encounter Summary ---
Author Organization [facility] Address [address] [place] [address]. [place] [address] [place] [address] Care Team Providers Care Director Of Application Development Name Role Phone Unavailable Primary Care Provider Unavailabl e Encounter Details Date Type Department Care Team (Late st Contact Info) Description 08/30/2011 Abstract [facility] [address] [place] [address] [place] [address] [address] Social History Tobacco Use Types Packs/Day Years [...] documented as of this encounter Visit Diagnoses Diagnosis Low back pain Lumbago documented in this encounter
--- OUTSIDE RECORDS SUMMARY | 2024-06-25 00:31 | XMS_ITS | Encounter Summary ---
Author Organization [facility] Address [address] [place] [address]. [place] [address] [place] [address] Care Team Providers Care Clinical Medical Transcriptionist Name Role Phone Unavailable Primary Care Provider Unavailabl e Encounter Details Date Type Department Care Team (Late st Contact Info) Description 07/31/2017 Abstract [facility] [address] [place], [place] [id number] Sarah Baker PA-C [address] [place], [place] [id number] Social History Tobacco Use Types Packs/Day Years [...] Procedure Name Priority Date/Time Associated Diagnosis Comments POCT CREATININE Routine 07/31/2017 1:15 PM EDGE BURNISHER documented in this encounter Results * POCT CREATININE (07/31/2017 1:15 PM EDGE BURNISHER) CREATININE WHOLE BLOOD 0.9 0.6 - 1.2 MG/DL 07/31/2017 1:16 PM EDGE BURNISHER [facility] () [facility] WHOLE BLOOD SPECIMEN / Unknown 07/31/2017 1:15 PM EDGE BURNISHER 07/31/2017 1:16 PM EDGE BURNISHER us Generic Conversion Md OROZCO POINT OF CARE TEST MILADIS FERRERA Final Result Performing Organization Address City/State/[facility] Co de Phone Number [facility] [address] [place] [address], [place] [phone] documented in this encounter Visit Diagnoses Diagnosis Abdominal pain Abdominal pain, unspecified site documented in this encounter
--- OUTSIDE RECORDS SUMMARY | 2024-06-25 00:31 | XMS_ITS | Encounter Summary ---
Author Organization [facility] Address [address] [place] [address]. [place] [address] [place] [address] Care Team Providers Care Pre Press Manager Name Role Phone Unavailable Primary Care Provider Unavailabl e Encounter Details Date Type Department Care Team (Late st Contact Info) Description 04/17/[address] [facility] [address] [place] [address] Maico Sepulveda, STRATEGIC ALLIANCES MANAGER [address] [facility] [address] [place] [address] Social History Tobacco Use Types Packs/Day Years [...] as of this encounter Visit Diagnoses Diagnosis Hypothyroidism Unspecified hypothyroidism documented in this encounter
--- OUTSIDE RECORDS SUMMARY | 2024-06-25 00:31 | XMS_ITS | Encounter Summary ---
Author Organization [facility] Address [address] [place] [address]. [place], [place] [address] [place] [address] Care Team Providers Care Biology Faculty Member Name Role Phone Unavailable Primary Care Provider Unavailabl e Encounter Details Date Type Department Care Team (Late st Contact Info) Description 12/31/2007 Abstract [facility] CONVERSION [address] [place] [address] Maico Hernandez, [facility] [address] [place] [address] Social History Tobacco Use Types Packs/Day Years [...]
--- OUTSIDE RECORDS SUMMARY | 2024-06-25 00:31 | XMS_ITS | Encounter Summary ---
Author Organization [facility] Address [address] [place] [address]. [place] [address] [place] [address] Care Team Providers Care Division Sergeant Name Role Phone Unavailable Primary Care Provider Unavailabl e Encounter Details Date Type Department Care Team (Late st Contact Info) Description 09/12/2018 Abstract [facility] [address] [place] [address] Marcos Vallejo MD [address] [facility] [address] [place] [address] Social History Tobacco Use Types Packs/Day Years [...] as of this encounter Visit Diagnoses Diagnosis Other hemorrhoids documented in this encounter
--- OUTSIDE RECORDS SUMMARY | 2024-06-25 00:31 | XMS_ITS | Encounter Summary ---
Author Organization [facility] Address [address] [place] [address]. [place], [place] [address] [place] [address] Care Team Providers Care Wire Drawing Die Maker Name Role Phone Unavailable Primary Care Provider Unavailabl e Encounter Details Date Type Department Care Team (Late st Contact Info) Description 09/11/[address] [facility] CONVERSION [address] [place], [place] [id number] Jaguar Mckeon MD [address] [place] [address] Social History Tobacco Use Types Packs/Day Years [...]
--- OUTSIDE RECORDS SUMMARY | 2024-06-25 00:31 | XMS_ITS | Encounter Summary ---
Author Organization [facility] Address [address] [place] [address]. [place], [place] [address] [place] [address] Care Team Providers Care Compliance Clerk Name Role Phone Unavailable Primary Care Provider Unavailabl e Encounter Details Date Type Department Care Team (Latest Contact Info) Description 08/20/2020 Travel Social History Tobacco Use Types Packs/Day [...] have Coronavirus / COVID-19? No / Unsure 08/20/2020 3:01 PM RECRUITING AND SELECTION CONSULTANT documented as of this encounter Plan of Treatment Not on file documented as of this encounter Visit Diagnoses Not on filedocumented in this encounter
--- OUTSIDE RECORDS SUMMARY | 2024-06-25 00:31 | XMS_ITS | Encounter Summary ---
Author Organization [facility] Address [address] [place] [address]. [place] [address] [place] [address] Care Team Providers Care Motor Brakeman Name Role Phone Unavailable Primary Care Provider Unavailabl e Encounter Details Date Type Department Care Team (Late st Contact Info) Description 02/15/[address] [facility] [address] [place] [id number] Social History Tobacco Use Types Packs/Day Years [...] of this encounter Visit Diagnoses Diagnosis Other depressive disorder documented in this encounter
--- OUTSIDE RECORDS SUMMARY | 2024-06-25 00:31 | XMS_ITS | Encounter Summary ---
Author Organization [facility] Address [address] [place] [address]. [place], [place] [address] [place] [address] Care Team Providers Care Vacuum Frame Operator Name Role Phone Jaguar Mckeon MD Primary Care Provider [phone] Encounter Details Date Type Department Care Team (Latest Contact Info) Description 03/29/2021 Travel Social History Tobacco Use Types Packs/Day [...] have Coronavirus / COVID-19? No / Unsure 03/29/2021 12:55 PM CDT documented as of this encounter Plan of Treatment Not on file documented as of this encounter Visit Diagnoses Not on filedocumented in this encounter Care Teams Vacuum Frame Operator Relationship Specialty Start Date End Date Jaguar Mckeon MD [address] [place] [address] PCP - General INTERNAL MEDICINE 03/21/21 documented as of this encounter
--- OUTSIDE RECORDS SUMMARY | 2024-06-25 00:31 | XMS_ITS | Encounter Summary ---
Author Organization [facility] Address [address] [place] [address]. [place] [address] [place] [address] Care Team Providers Care Electrotype Caster Name Role Phone Unavailable Primary Care Provider Unavailabl e Encounter Details Date Type Department Care Team (Late st Contact Info) Description 06/06/2012 Abstract [facility] [address] [place] [address] Maico Sepulveda, UI PROGRAMMER [address] [facility] [address] [place] [address] Social History Tobacco Use Types Packs/Day Years [...] as of this encounter Visit Diagnoses Diagnosis Myalgia and myositis Mylagia and myositis, unspecified documented in this encounter
--- OUTSIDE RECORDS SUMMARY | 2024-06-25 00:31 | XMS_ITS | Encounter Summary ---
Author Organization [facility] Address [address] [place] [address]. [place], [place] [address] [place] [address] Care Team Providers Care Medical Videographer Name Role Phone Unavailable Primary Care Provider Unavailabl e Encounter Details Date Type Department Care Team (Latest Contact Info) Description 08/20/2020 3:05 PM GOLDSMITH APPRENTICE - 08/20/2020 11:59 PM GOLDSMITH APPRENTICE Hospital Encounter [facility] [address] [place] [address] Heron Trinh MD Discharge Disposition: Home or Self Care (Routine [...] COVID-19? No / Unsure 08/20/2020 3:01 PM GOLDSMITH APPRENTICE documented as of this encounter Plan of Treatment Not on file documented as of this encounter Visit Diagnoses Diagnosis Need for prophylactic vaccination against viral disease- Primary Need for prophylactic vaccination and inoculation against other viral diseases documented in this encounter
--- OUTSIDE RECORDS SUMMARY | 2024-06-25 00:31 | XMS_ITS | Encounter Summary ---
Author Organization [facility] Address [address] [place] [address]. [place] [address] [place] [address] Care Team Providers Care Prosthetic Makeup Designer Name Role Phone Unavailable Primary Care Provider Unavailabl e Encounter Details Date Type Department Care Team (Late st Contact Info) Description 05/30/2011 Abstract [facility] [address] [place], [place] [id number] Sarah Baker PA-C [address] [place] [address] Social History Tobacco Use Types Packs/Day Years [...] as of this encounter Visit Diagnoses Diagnosis Anemia Anemia, unspecified documented in this encounter
--- OUTSIDE RECORDS SUMMARY | 2024-06-25 00:31 | XMS_ITS | Encounter Summary ---
Author Organization [facility] Address [address] [place] [address]. [place], [place] [address] [place] [address] Care Team Providers Care Supervisor Incising Name Role Phone Unavailable Primary Care Provider Unavailabl e Encounter Details Date Type Department Care Team (Late st Contact Info) Description 04/12/2009 Abstract [facility] CONVERSION [address] [place] [address] Jaguar Mckeon MD [address] [place] [address] Social History Tobacco Use Types Packs/Day Years [...]
--- OUTSIDE RECORDS SUMMARY | 2024-06-25 00:31 | XMS_ITS | Encounter Summary ---
Author Organization [facility] Address [address] [place] [address]. [place] [address] [place] [address] Care Team Providers Care Locomotive Operator Helper Name Role Phone Unavailable Primary Care Provider Unavailabl e Encounter Details Date Type Department Care Team (Late st Contact Info) Description 09/27/2011 Abstract [facility] [address] [place], [place] [id number] Sarah Baker PA-C [address] [place] [address] Social History Tobacco Use Types Packs/Day Years [...] of this encounter Visit Diagnoses Diagnosis Other B-complex deficiencies documented in this encounter
--- OUTSIDE RECORDS SUMMARY | 2024-06-25 00:31 | XMS_ITS | Encounter Summary ---
Author Organization [facility] Address [address] [place] [address]. [place], [place] [address] [place] [address] Care Team Providers Care Drop Forge Hand Name Role Phone Unavailable Primary Care Provider Unavailabl e Encounter Details Date Type Department Care Team (Late st Contact Info) Description 03/08/2012 Abstract [facility] [address] [place], [place] [id number] Jaguar Mckeon MD [facility] [place] [address] Social History Tobacco Use Types Packs/Day Years [...] of this encounter Visit Diagnoses Diagnosis Other malaise and fatigue documented in this encounter
--- OUTSIDE RECORDS SUMMARY | 2024-06-25 00:31 | XMS_ITS | Encounter Summary ---
Author Organization [facility] Address [address] [place] [address]. [place] [address] [place] [address] Care Team Providers Care Assisted Living Administrator Name Role Phone Unavailable Primary Care Provider Unavailabl e Encounter Details Date Type Department Care Team (Late st Contact Info) Description 02/05/2010 Abstract [facility] CONVERSION [address] [place] [address] , Generic Conversion, Social History Tobacco Use Types Packs/Day Years [...]
--- OUTSIDE RECORDS SUMMARY | 2024-06-25 00:31 | XMS_ITS | Encounter Summary ---
Author Organization [facility] Address [address] [place] [address]. [place] [address] [place] [address] Care Team Providers Care Material Planner Name Role Phone Unavailable Primary Care Provider Unavailabl e Encounter Details Date Type Department Care Team (Late st Contact Info) Description 04/08/2011 Abstract [facility] [address] [place], [place] [phone] Sarah Baker PA-C [address] [place] [address] Social History Tobacco Use Types Packs/Day Years [...] of this encounter Visit Diagnoses Diagnosis Other and unspecified hyperlipidemia documented in this encounter
--- OUTSIDE RECORDS SUMMARY | 2024-06-25 00:31 | XMS_ITS | Encounter Summary ---
Author Organization [facility] Address [address] [place] [address]. [place], [place] [address] [place] [address] Care Team Providers Care Nutrition Teacher Name Role Phone Unavailable Primary Care Provider Unavailabl e Encounter Details Date Type Department Care Team (Late st Contact Info) Description 03/22/2012 Abstract [facility] [address] [place], [place] [id number] Jaguar Mckeon MD [facility] [place] [address] Social History Tobacco Use Types Packs/Day Years [...]
--- OUTSIDE RECORDS SUMMARY | 2024-06-25 00:31 | XMS_ITS | Encounter Summary ---
Author Organization [facility] Address [address] [place] [address]. [place] [address] [place] [address] Care Team Providers Care Dairy Bar Manager Name Role Phone Unavailable Primary Care Provider Unavailabl e Encounter Details Date Type Department Care Team (Late st Contact Info) Description 08/17/2020 Orders Only [facility] [place] [address] Heron Trinh MD Social History Tobacco Use Types Packs/Day Years [...] COVID-19? No / Unsure 08/20/2020 3:01 PM FUGITIVE DETECTIVE documented as of this encounter Plan of Treatment Not on file documented as of this encounter Visit Diagnoses Not on filedocumented in this encounter
--- OUTSIDE RECORDS SUMMARY | 2024-06-25 00:31 | XMS_ITS | Encounter Summary ---
Author Organization [facility] Address [address] [place] [address]. [place] [address] [place] [address] Care Team Providers Care Tire And Tube Repairer Name Role Phone Unavailable Primary Care Provider Unavailabl e Encounter Details Date Type Department Care Team (Late st Contact Info) Description 02/21/2012 Abstract [facility] [address] [place] [id number] Social History Tobacco Use Types Packs/Day Years [...] as of this encounter Visit Diagnoses Diagnosis Edema documented in this encounter
--- OUTSIDE RECORDS SUMMARY | 2024-06-25 00:31 | XMS_ITS | Encounter Summary ---
Author Organization [facility] Address [address] [place] [address]. [place], [place] [address] [place] [address] Care Team Providers Care Public Service Administrator Name Role Phone Unavailable Primary Care Provider Unavailabl e Encounter Details Date Type Department Care Team (Late st Contact Info) Description 09/25/2007 Abstract [facility] CONVERSION [address] [place] [address] Maico Hernandez, [facility] [address] [place] [address] Social History Tobacco Use Types Packs/Day Years [...]
--- OUTSIDE RECORDS SUMMARY | 2024-06-25 00:31 | XMS_ITS | Encounter Summary ---
Author Organization [facility] Address [address] [place] [address]. [place], [place] [address] [place] [address] Care Team Providers Care Manager Primary Care Name Role Phone Jaguar Mckeon MD Primary Care Provider [phone] Encounter Details Date Type Department Care Team (Latest Contact Info) Description 03/21/2021 Travel Social History Tobacco Use Types Packs/Day [...] have Coronavirus / COVID-19? No / Unsure 03/21/2021 2:12 PM CDT documented as of this encounter Plan of Treatment Not on file documented as of this encounter Visit Diagnoses Not on filedocumented in this encounter Care Teams Manager Primary Care Relationship Specialty Start Date End Date Jaguar Mckeon MD [address] [place] [address] PCP - General INTERNAL MEDICINE 03/21/21 documented as of this encounter
--- OUTSIDE RECORDS SUMMARY | 2024-06-25 00:31 | XMS_ITS | Encounter Summary ---
Author Organization [facility] Address [address] [place] [place] [address]. [place], [place] [address] [place] [address] Care Team Providers Care Reactor Service Operator Name Role Phone Jaguar Mckeon MD Primary Care Provider [phone] Reason for Visit * Reason Comments Dizziness * Physical Therapy (Routine) - Closed Specialty Diagnoses / Procedures Referred By Concha gleason Referred To Contact PHYSICAL THERAPY / [facility] Physical Therapy Diagnoses nerve pain and vestibular is having order faxed to us Procedures Sarah Herrera PA-C Phone: tel: fax: [facility] [address] [place] [address] Phone: tel: fax: Referral ID Status Reason Start Date Expiration Date V isits Requested Visits Authorized [id number] Closed Physical Therapy 03/21/2021 03/22/2022 100 100 Encounter Details Date Type Department Care Team (Latest Contact Info) Description 03/21/2021 2:18 PM CDT - 03/21/2021 11:59 PM CDT Hospital Encounter [facility] [address] [place], [place] [phone] Jaguar Mckeon MD [facility] [place], [place] [phone] [place] [address] [place] [address] Dizziness Discharge Disposition: Home or Self Care (Routine [...] PM CDT documented as of this encounter Progress Notes * Kamilla Sanchez, PT - 03/21/2021 2:45 PM CDT PT/OT Vestibular Evaluation Diagnosis: Vertigo [R42] SUBJECTIVE Therapy Visit Visit Diagnosis: vertigo, cervicalgia. PT dx: BPPV Referring Provider: Sarah Baker PA-C Current Therapy Orders: eval and rx Date of Injury/Onset: 2 weeks ago Subjective Note: Patient states she has had a history of vertigo for years. But states she had a recent flare-up of symptoms about 2 weeks ago. States if she rolls in bed onto her L side or turns her head to the L or looking up it makes it worse. States she also has nausea with it. States she also feels like she has a shaky head. States she has had the Ellen's done before and that did help. Patient states prior to this recent onset she was taking Meclizine every day and also has issues with motion sickness. Has never done the Ellen's at home. Patient states Sat her symptoms were almost gone, but Sun wasterrible. Patient states she feels like everything is spinning/moving when she has an episode of vertigo. Relevant Comorbidities/ Personal Factors: depression Pain Location of Pain: no c/o pain Review With Patient Medication Reviewed: yes Diagnostics: none Patient stated goals for therapy: stop dizziness Dizziness Symptoms Description of Dizziness: spinning sensation Activities that increase dizziness: turning head to L, looking up, rolling in bed to L Activities that decrease dizziness: not moving Changes in Hearing: no Changes in Vision: no History of Headache or Migraine: no Reported Falls: no OBJECTIVE Observation Blood Pressure: 140/90 mmHg Heart Rate: 60 bpm Posture Cervical: forward head, rounded shoulders Functional Mobility Gait: Patient ambulating without AD with wide DEREK, no LOB and patient did not veer off path during gait CERVICAL ROM in Degrees Other (Comments): cervical ROM WFL except patient cautious with cervical ext and L rotation due to vertigo Occulomotor exam Smooth pursuit: Negative Saccades: Negative Positional Vestibular Exam [place] to the left: Positive Return to sit: felt nauseated and mild c/o dizziness [place] to the left comments: rotational nystagmus and c/o spinning sensation noted ASSESSMENT Assessment Note: Patient has long history of vertigo, but has had a recent flare-up in symptoms with c/o spinning sensation. Patient did test positive for BPPV with the [place] Hallpike Maneuver to the L. The Ellen's Maneuver was performed and also instructed patient and spouse for HEP. Patient had no c/o cervical pain, but will assess her cervical spine in future visits re: cervicalgia and further balance testing. She will also benefit from continued PT for continued treatment of BPPV and progression to habituation ex as appropriate. Therapy Diagnosis: BPPV. Vestibular Problem List: BPPV, Dizziness, Impaired functional activities, Impaired balance PT EVAL COMPLEXITY PT - Personal Factors/Comorbidities Impacting Care: 1-2 personal factors/comorbidities PT - Examination of Body Systems: High (at least 4 Elements) PT - Clinical Presentation of Patient: Evolving and changing characteristics PT - Decision Making: Moderate PT Eval Moderate Complexity - Minutes - 70454: 45 Education Was Education Provided: Yes Topic: PT POC, diagnosis, Ellen's Maneuver for HEP Recipient: Patient, Spouse Method: Verbal, Written, Return Demonstration Response: Asked questions, Demonstrates adequately, Verbalized understanding Barriers: None PLAN Plan Treatments/Interventions: Neuromuscular Re-education - 27181, Gait Training - 33629, Therapeutic Exercise - 66720, Manual Therapy - 55526 Therapy Frequency: (1-2 x week for 4-6 weeks) Plan For Next Session: Continue Ellen's Maneuver and assess cervical spine and progress to habituation ex as appropriate Instruction Provided Home Exercise Program: Ellen's Maneuver TREATMENT PROVIDED TODAY Timed Treatments Neuromuscular Re-education Minutes - 53849: 15 Neuromuscular Re-education - 48919: Ellen's Maneuver x 3 Total Minutes: 15 Total Times Total Treatment Minutes: 15 Total Timed treatment Minutes: 15 Evaluation + Treatment = Total Time For Today's Visit: 60 Vestibular rehab will include the following: ?? Physical Performance Testing: Further BPPV and balance testing. ?? Neuromuscular reeducation: Progression of vestibular exercises including balance retraining. ?? Canalith repositioning. ?? Manual Therapy for cervical spine ?? Gait training for improved gait efficiency Functional deficits and goals: 1. Decreased knowledge of how to manage symptoms independently. GOAL: The patient to be independentwith symptom management with ADLs to be achieved in 6 weeks. 2. Patient is having dizziness symptoms with turning head to L and rolling to L in bed. GOAL: Patient to have at least 50% reduction of symptoms with L cervical rotation movements within 6 weeks. THE PROVIDER, I AM IN AGREEMENT WITH THE STATED THERAPY PLAN OF CARE. Provider Signature: Date: In signing this document, provider certifies that prescribed rehabilitation is a medical necessity. Date: 03/21/2021 Patient Name: Arlet Billings Patient : 1950 Patient [facility] [address] [facility] [address] Dept: [phone] Dept documented in this encounter Plan of Treatment Not on file documented as of this encounter Visit Diagnoses Diagnosis Vertigo- Primary Dizziness and giddiness Cervicalgia documented in this encounter Care Teams Reactor Service Operator Relationship Specialty Start Date End Date Jaguar Mckeon MD [address] [place] [address] PCP - General INTERNAL MEDICINE 03/21/21 documented as of this encounter
--- OUTSIDE RECORDS SUMMARY | 2024-06-25 00:31 | XMS_ITS | Encounter Summary ---
Author Organization [facility] Address [address] [place] [address]. [place], [place] [address] [place] [address] Care Team Providers Care Gardening Supervisor Name Role Phone Jaguar Mckeon MD Primary Care Provider [phone] Reason for Visit * Reason Comments Dizziness * Physical Therapy (Routine) - Closed Specialty Diagnoses / Procedures Referred By Concha gleason Referred To Contact PHYSICAL THERAPY / [facility] Physical Therapy Diagnoses nerve pain and vestibular is having order faxed to us Procedures Sarah Herrera PA-C Phone: tel: fax: [facility] [address] [place] [address] Phone: tel: fax: Referral ID Status Reason Start Date Expiration Date V isits Requested Visits Authorized [id number] Closed Physical Therapy 03/21/2021 03/22/2022 100 100 Encounter Details Date Type Department Care Team (Latest Contact Info) Description 03/29/2021 12:55 PM CDT - 03/29/2021 11:59 PM CDT Hospital Encounter [facility] [address] [place] [address] Sarah Baker PA-C [address] [place] [address] [place] [address] [place] [address] Dizziness Discharge Disposition: Home or Self Care [...] Progress Notes * Kamilla Sanchez, PT - 03/29/2021 1:15 PM CDT Physical Therapy Visit Note: Patient Name: Arlet Billings Diagnosis: Vertigo [R42] Personal Protective Equipment PPE Used During Visit: Therapist wore medical grade mask throughout session, Patient wore mask throughout session SUBJECTIVE Therapy Visit Treatment Day: 2 Total Approved Visits: ins unlimited/ PT POC up to 12 Therapy Plan of Care: 1-2 x week for 4-6 weeks Current Therapy Orders: eval and rx Diagnosis: Vertigo Referring Provider: Sarah Baker PA-C Subjective Note: Patient states it has been going pretty good. States she hasn't really gone anywhere or done anything. But states she is doing the maneuver at home at least 3 times a day. States she hasn't hadany episodes today. States 1 time yesterday when she did the Ellen's she noticed feeling a little of the sensation, but did not get the full spinning feeling. States she did realize when she leaned back in the chair with her head to the left slightly she did not have any symptoms. States she was able to pick a comb off the floor without symptoms but did hold onto the door for safety. Patient states she is still taking the Meclizine. States she is still getting some nausea at times. Response to prior treatment: didn't feel the best Compliance to Home Program: compliant Reported Falls since last visit: no Medications changes since last visit : no OBJECTIVE Treatment provided today: Neuromuscular Re-education - 41632 Number of Minutes - 60794: 25 Intervention: L Ellen's Maneuver x 2 Home Exercise Program Current Home Exercise Program: discussed Education Was Education Provided: Yes Topic: continue HEP and residual side effects resolving ASSESSMENT Assessment Note: Patient had 2-3 seconds upbeat nystagmus with 1st rep of Ellen's but none on 2nd rep. Patientable to perform quick head nods and turns x 5 without symptoms. Patient continues to have feeling of being off when ambulating and instructed that these side effects should resolve over time also. Patient instructed to continue with HEP and if symptoms not completely resolved in 1 1/2 to 2 weeks to call to schedule further visits and will re-assess at that time. Patient agreeable with this plan. Response to Treatment : felt ok Continue on Functional Deficit of: vertigo affecting mobility PLAN Plan Next Visit Plan: Continue PT if patient calls to schedule further visits and will assess cervical spine and further vertigo testing. Total Time Total Time in Minutes: 25 Timed Code Treatment Minutes : 25 documented in this encounter Plan of Treatment Not on file documented as of this encounter Visit Diagnoses Diagnosis Vertigo- Primary Dizziness and giddiness Cervicalgia documented in this encounter Care Teams Gardening Supervisor Relationship Specialty Start Date End Date Jaguar Mckeon MD [address] [place] [address] PCP - General INTERNAL MEDICINE 03/21/21 documented as of this encounter
--- OUTSIDE RECORDS SUMMARY | 2024-06-25 00:31 | XMS_ITS | Encounter Summary ---
Author Organization [facility] Address [address] [place] [address]. [place] [address] [place] [address] Care Team Providers Care Harness Brusher Name Role Phone Unavailable Primary Care Provider Unavailabl e Encounter Details Date Type Department Care Team (Late st Contact Info) Description 06/14/2012 Abstract [facility] [address] [place] [address] Maico Sepulveda, PATIENT FINANCIAL SPECIALIST [address] [facility] [address], [place] [address] Social History Tobacco Use Types Packs/Day Years [...] as of this encounter Visit Diagnoses Diagnosis Leukocytosis Leukocytosis, unspecified documented in this encounter
--- OUTSIDE RECORDS SUMMARY | 2024-06-25 00:31 | XMS_ITS | Encounter Summary ---
Author Organization [facility] Address [address] [place] [address]. [place] [address] [place] [address] Care Team Providers Care Carnallite Plant Operator Name Role Phone Unavailable Primary Care Provider Unavailabl e Encounter Details Date Type Department Care Team (Late st Contact Info) Description 05/27/2011 Abstract [facility] [address] [place], [place] [phone] Sarah Baker PA-C [address] [place] [address] Social History Tobacco Use Types Packs/Day Years [...]
--- OUTSIDE RECORDS SUMMARY | 2024-06-25 00:31 | XMS_ITS | Encounter Summary ---
Author Organization [facility] Address [address] [place] [address]. [place] [address] [place] [address] Care Team Providers Care In School Suspension Coordinator Name Role Phone Unavailable Primary Care Provider Unavailabl e Encounter Details Date Type Department Care Team (Late st Contact Info) Description 03/04/2013 Abstract [facility] [address] [place], [place] [phone] Sarah Baker PA-C [address] [place] [address] Social History Tobacco Use Types Packs/Day Years [...]
--- OUTSIDE RECORDS SUMMARY | 2024-06-25 00:31 | XMS_ITS | Encounter Summary ---
Author Organization [facility] Address [address] [place] [address]. [place] [address] [place] [address] Care Team Providers Care Apn Name Role Phone Unavailable Primary Care Provider Unavailabl e Encounter Details Date Type Department Care Team (Late st Contact Info) Description 02/28/2012 Abstract [facility] [address] [place], [place] [phone] Sarah Baker PA-C [address] [place] [address] Social History Tobacco Use Types Packs/Day Years [...]
--- OUTSIDE RECORDS SUMMARY | 2024-06-25 00:31 | XMS_ITS | Encounter Summary ---
Author Organization [facility] Address [address] [place] [address]. [place] [address] [place] [address] Care Team Providers Care Senior Clinical Research Scientist Name Role Phone Unavailable Primary Care Provider Unavailabl e Encounter Details Date Type Department Care Team (Late st Contact Info) Description 05/12/2010 Abstract [facility] [address] [place], [place] [id number] Sarah Baker PA-C [address] [place] [address] Social History Tobacco Use Types Packs/Day Years [...]
--- OUTSIDE RECORDS SUMMARY | 2024-06-25 00:31 | XMS_ITS | Encounter Summary ---
Author Organization [facility] Address [address] [place] [address]. [place] [address] [place] [address] Care Team Providers Care Soldering Machine Tender Name Role Phone Jaguar Mckeon MD Primary Care Provider [phone] Encounter Details Date Type Department Care Team (Latest Contact Info) Description 07/06/2021 3:50 PM CABLE STRANDER - 07/06/2021 11:59 PM CABLE STRANDER Hospital Encounter [facility] [address] [place] [address] Taina Hayden MD [address] [place] [address] Discharge Disposition: Home or Self [...] COVID-19? No / Unsure 07/06/2021 3:51 PM CABLE STRANDER documented as of this encounter Plan of Treatment Not on file documented as of this encounter Procedures Procedure Name Priority Date/Time Associated Diagnosis Comments HC PROTEIN TOTAL URINE-90 Routine 07/06/2021 4:18 PM CABLE STRANDER Sjogren's syndrome (CMS/HCC [facility]) Fatigue Arthritis Screening for diabetes mellitus Impaired glucose tolerance test Vitamin D deficiency Iron deficiency anemia, unspecified 14-3-3 ETA PROTEIN Routine 07/06/2021 4: 03 PM CABLE STRANDER Sjogren's syndrome ([facility]) Fatigue Arthritis Screening for diabetes mellitus Impaired glucose tolerance test Vitamin D deficiency Iron deficiency anemia, unspecified IMMUNOFIXATION, URINE Routine 07/06/2021 4:03 PM CABLE STRANDER Sjogren's syndrome ([facility]) Fatigue Arthritis Screening for diabetes mellitus Impaired glucose tolerance test Vitamin D deficiency Iron deficiency anemia, unspecified CELSO IFA SCRN, [place] REFLEX TO TITER Routine 07/06/2021 4:03 PM CABLE STRANDER Sjogren's syndrome ([facility]) Fatigue Arthritis Screening for diabetes mellitus Impaired glucose tolerance test Vitamin D deficiency Iron deficiency anemia, unspecified KAPPA/LAMBDA LIGHT CHAIN, RANDOM URINE (QST) Routine 07/06/2021 4:03 PM CABLE STRANDER Sjogren's syndrome ([facility]) Fatigue Arthritis Screening for diabetes mellitus Impaired glucose tolerance test Vitamin D deficiency Iron deficiency anemia, unspecified RHEUMATOID FACTOR, QUANT Routine 07/06/2021 4:03 PM CABLE STRANDER Sjogren's syndrome ([facility]) Fatigue Arthritis Screening for diabetes mellitus Impaired glucose tolerance test Vitamin D deficiency Iron deficiency anemia, unspecified CYCLIC CITRULLINATED PEPTIDE (CCP)ANTIBODY(IGG) Routine 07/06/2021 4:03 PM CABLE STRANDER Sjogren's syndrome ([facility]) Fatigue Arthritis Screening for diabetes mellitus Impaired glucose tolerance test Vitamin D deficiency Iron deficiency anemia, unspecified HEMOGLOBIN, GLYCOSYLATED Routine 07/06/2021 4:03 PM CABLE STRANDER Sjogren's syndrome ([facility]) Fatigue Arthritis Screening for diabetes mellitus Impaired glucose tolerance test Vitamin D deficiency Iron deficiency anemia, unspecified ENA2 (SSA & SSB) Routine 07/06/2021 4:03 PM CABLE STRANDER Sjogren's syndrome ([facility] HHS/HCC) Fatigue Arthritis Screening for diabetes mellitus Impaired glucose tolerance test Vitamin D deficiency Iron deficiency anemia, unspecified SED RATE, ERYTHROCYTE (ESR) Routine 07/06/2021 4:03 PM CABLE STRANDER Sjogren's syndrome ([facility]HS/[facility]) Fatigue Arthritis Screening for diabetes mellitus Impaired glucose tolerance test Vitamin D deficiency Iron deficiency anemia, unspecified IMMUNOFIXATION Routine 07/06/2021 4:03 PM CABLE STRANDER Sjogren's syndrome ([facility]) Fatigue Arthritis Screening for diabetes mellitus Impaired glucose tolerance test Vitamin D deficiency Iron deficiency anemia, unspecified C-REACTIVE PROTEIN Routine 07/06/2021 4: 03 PM CABLE STRANDER Sjogren's syndrome ([facility]) Fatigue Arthritis Screening for diabetes mellitus Impaired glucose tolerance test Vitamin D deficiency Iron deficiency anemia, unspecified VITAMIN B6 Routine 07/06/2021 4:03 PM CABLE STRANDER Sjogren's syndrome ([facility]) Fatigue Arthritis Screening for diabetes mellitus Impaired glucose tolerance test Vitamin D deficiency Iron deficiency anemia, unspecified VITAMIN B1 THIAMINE Routine 07/06/2021 4 :03 PM CABLE STRANDER Sjogren's syndrome ([facility]) Fatigue Arthritis Screening for diabetes mellitus Impaired glucose tolerance test Vitamin D deficiency Iron deficiency anemia, unspecified PROTEIN, ELECTROPHORESIS Routine 07/06/2021 4:03 PM CABLE STRANDER Sjogren's syndrome ([facility]) Fatigue Arthritis Screening for diabetes mellitus Impaired glucose tolerance test Vitamin D deficiency Iron deficiency anemia, unspecified VITAMIN D, 25 OH Routine 07/06/2021 4:03 PM CABLE STRANDER Sjogren's syndrome ([facility]) Fatigue Arthritis Screening for diabetes mellitus Impaired glucose tolerance test Vitamin D deficiency Iron deficiency anemia, unspecified FERRITIN Routine 07/06/2021 4:03 PM CABLE STRANDER Sjogren's syndrome ([facility]) Fatigue Arthritis Screening for diabetes mellitus Impaired glucose tolerance test Vitamin D deficiency Iron deficiency anemia, unspecified CK (CPK) Routine 07/06/2021 4:03 PM CABLE STRANDER Sjogren's syndrome ([facility]) Fatigue Arthritis Screening for diabetes mellitus Impaired glucose tolerance test Vitamin D deficiency Iron deficiency anemia, unspecified URIC ACID BLOOD Routine 07/06/2021 4:03 PM CABLE STRANDER Sjogren's syndrome ([facility]) Fatigue Arthritis Screening for diabetes mellitus Impaired glucose tolerance test Vitamin D deficiency Iron deficiency anemia, unspecified documented in this encounter Results * (ABNORMAL) PROTEIN ELECTROPHORESIS URINE RANDOM (07/06/2021 4:18 PM CABLE STRANDER) Pathologist [facility] PROTEIN/CREATININE RATIO MG/G 74 21 - 161 mg/g creat 07/10/2021 5:42 AM CABLE STRANDER [facility] [place] PROTEIN RANDOM (U) 4(L) 5 - 24 mg/dL 07/10/2021 5:42 AM CABLE STRANDER [facility] [place] [place] CREATININE RANDOM URINE 54 20 - 275 mg/dL 07/10/2021 5:42 AM CABLE STRANDER [facility] [place] [facility] ALBUMIN ELECTROPHORESIS (U) 47 % 07/10/2021 5:42 AM CABLE STRANDER [facility] URINE ALPHA1 8 % 07/10/2021 5:42 AM CABLE STRANDER [facility] [facility] URINE ALPHA2 19 % 07/10/2021 5:42 AM CABLE STRANDER [facility] BETA GLOBULIN (U) 15 % 022 5:42 AM CABLE STRANDER [facility] GAMMA GLOBULIN (U) 12 % 2021 5:42 AM CABLE STRANDER [facility] [facility] ABNORMAL PROTEIN BAND 1 (U) REPORT 07/10/2021 5:42 AM CABLE STRANDER [facility] Comment: No M-Aureliano detected. ABNORMAL PROTEIN BAND 3 (U) END OF REPORT 07/10/2021 5:42 AM CABLE STRANDER [facility] [place] [facility] PROTEIN (ELP) (U) REPORT 022 5:42 AM CABLE STRANDER [facility] CHACHO MILLER Comment: No abnormal peaks are detected on protein electrophoresis. Test Performed by Sh[facility] E[facility], [employer]) [facility], [address] [place], [place] Johnathan Ponce M.D., Ph.D., Director of Laboratories , [facility] [id number] URINE SPECIMEN / Unknown 07/06/2021 4:18 PM CABLE STRANDER us Taina Hayden MD URINE ORDERABLES Final Result Performing Organization Address City/[facility]/ZIP Co de Phone Number [facility] [address] , [place] [phone] * HEMOGLOBIN, GLYCOSYLATED (07/06/2021 4:03 PM CABLE STRANDER) HGB A1C 5.4 <5.7 % 07/06/2021 6:19 PM CABLE STRANDER [facility] Comment: INCREASED RISK OF DIABETES <5.7% ?NON-DIABETES 5.7-6.4% INCREASED RISK FOR FUTURE DIABETES > OR = 6.5 CONSISTENT WITH DIABETES STANDARDS OF MEDICAL CARE IN DIABETES-2010 DIABETES CARE, 33(SUPP 1): S1-S61,2010 07/06/2021 4:03 PM CABLE STRANDER us Taina Hayden MD LABORATORY Final Result [facility] [address] [place] [address], [place] [phone] * C-REACTIVE PROTEIN (07/06/2021 4:03 PM CABLE STRANDER) C-REACTIVE PROTEIN <0.20 <0.9 mg/dL 07/06/2021 5:44 PM CABLE STRANDER [facility] 07/06/2021 4:03 PM CABLE STRANDER us Taina Hayden MD LABORATORY Final Result Performing Organization Address City/[facility]/ZIP Co de Phone Number [facility] [address] [place] [address], [place] [phone] * (ABNORMAL) SED RATE, ERYTHROCYTE (ESR) (07/06/2021 4:03 PM CABLE STRANDER) ESR 41(H) 0 - 20 MM/HR 07/06/2021 5:41 PM CABLE STRANDER [facility] 07/06/2021 4:03 PM CABLE STRANDER us Taina Hayden MD LABORATORY Final Result Performing Organization Address [facility] Co de Phone Number [facility] [id number] [place] [address], [place] [phone] * URIC ACID BLOOD (07/06/2021 4:03 PM CABLE STRANDER) URIC ACID 4.5 2.6 - 6.0 MG/DL 07/06/2021 5:44 PM CABLE STRANDER [facility] 07/06/2021 4:03 PM CABLE STRANDER us Taina Hayden MD LABORATORY Final Result Performing Organization Address City/[facility]/ZIP Co de Phone Number [facility] [address] [place] [address], [place] [phone] * CK (CPK) (07/06/2021 4:03 PM CABLE STRANDER) CPK 76 26 - 192 U/L 07/06/2021 5:44 PM CABLE STRANDER [facility] 07/06/2021 4:03 PM CABLE STRANDER us Taina Hayden MD LABORATORY Final Result Performing Organization Address [facility] Co de Phone Number [facility] [address] [place] [address], [place] [phone] * FERRITIN (07/06/2021 4:03 PM CABLE STRANDER) Pathologist [facility] FERRITIN 131.0 8.0 - 388.0 NG/ML 07/06/2021 5:44 PM CABLE STRANDER [facility] 07/06/2021 4:03 PM CABLE STRANDER us Taina Hayden MD LABORATORY Final Result Performing Organization Address [facility] de Phone Number [facility] [address] [place] [address], [place] [phone] * VITAMIN D, 25 OH (07/06/2021 4:03 PM CABLE STRANDER) [facility] VITAMIN D 25 HYDROXY S/P/B 53 30 - 100 NG/ML 07/06/2021 5:17 PM CABLE STRANDER [facility] Comment: ? INTERPRETATION ? DEFICIENT ??<20 ? INSUFFICIENT 20-29 ?SUFFICIENT 30-100 07/06/2021 4:03 PM CABLE STRANDER us Taina Hayden MD LABORATORY Final Result Performing Organization Address [facility] Co de Phone Number [facility] [address] [place] [address], [place] [phone] * CYCLIC CITRULLINATED PEPTIDE (CCP)ANTIBODY(IGG) (07/06/2021 4:03 PM CABLE STRANDER) [facility] CITRULLINE PEPTIDE ANTIBODY <16 <20 Units 07/10/2021 12:19 PM CABLE STRANDER [facility] SARAI GIFFORD Comment: Negative: ? <20 Weak Positive: ?20 - 39 Moderate Positive: ?40 - 59 Strong Positive: ?>59 Test Performed by [employer], [facility] [place], [address] [place], [place] Johnathan Ponce M.D., Ph.D., Director of Laboratories , [facility] [id number] 07/06/2021 4:03 PM CABLE STRANDER us Taina Hayden MD LABORATORY Final Result [facility] [place] [id number] [place] [address], * 14-3-3 ETA PROTEIN (07/06/2021 4:03 PM CABLE STRANDER) 14-3-3 ETA PROTEIN <0.2 <0.2 ng/mL 07/15/2021 3:53 PM CABLE STRANDER [facility] SARAI GIFFORD Comment: The 14-3-3eta protein is [...] clinical remission. For further information please visit: [email or web address] Kinetics.[employer]ex[employer]/testcenter/testgui de.action?dc=TS-RmArthPnl This test was developed and its analytical performance characteristics have been determined by [facility]. It has not been cleared or approved by FDA. This assay has been validated pursuant to the CLIA regulations and is used for clinical purposes. Test performed by [facility] [place] ? [address], ? [place] [address] ? Materials Handler: Ora Yu MD,PHD,ROSS Test Reported by [facility], [employer] ([employer]) [facility], [address] [place] [address] Johnathan Ponce M.D., Ph.D., Director of Laboratories , [place] [id number] 07/06/2021 4:03 PM CABLE STRANDER Taina Hayden MD LABORATORY Final Result Performing Organization Address [facility]/ZIP Co de Phone Number [facility] [address] , * RHEUMATOID FACTOR, QUANT (07/06/2021 4:03 PM CABLE STRANDER) RHEUMATOID FACTOR <10 <15 IU/ML 07/06/2021 9:51 PM CABLE STRANDER [facility] 07/06/2021 4:03 PM CABLE STRANDER Taina aHyden MD LABORATORY Final Result Performing Organization Address [facility] Co de Phone Number [facility] [address] [place] [address], [place] [phone] * CELSO IFA SCRN, [place] REFLEX TO TITER (07/06/2021 4:03 PM CABLE STRANDER) CELSO Negative Negative 07/11/2021 11:34 AM CABLE STRANDER [facility] CHACHO MILLER Comment: CELSO IFA is a [...] AC-0: Negative International Consensus on CELSO Patterns https://doi.org/10.1515/zkru-8041-6553 For additional information, please refer to http://education.Total Prestige/faq/DEG772 (This link is being provided for informational/ educational purposes only.) Test Performed by [facility], [employer] ([employer]) [facility], [address] [place] [address] Johnathan Ponce M.D., Ph.D., Director of Laboratories , [facility] [id number] 07/06/2021 4:03 PM CABLE STRANDER Taina Hayden MD LABORATORY Final Result [facility] [address] [place] [phone], * KAPPA/LAMBDA LIGHT CHAIN, RANDOM URINE (QST) (07/06/2021 4:03 PM CABLE STRANDER) KAPPA, URINE <1.00 <2.00 mg/dL 07/11/2021 3:38 PM CABLE STRANDER [facility] SARAI LY LAMBDA, URINE <1.00 <2.00 mg/dL 07/11/2021 3:38 PM CABLE STRANDER [facility] SARAI LY COMMENT REPORT 07/11/2021 3:38 PM CABLE STRANDER [facility] SARAI GIFFORD Comment: This test measures primarily kappa and [...] the free light chains. Test performed by [facility] ? [address], ? [place] [address] ? Materials Handler: INA STODDARD M.D. Test Reported by [facility], [address] [place], [place] Johnathan Ponce M.D., Ph.D., Director of Laboratories , CLIA [id number] 07/06/2021 4:03 PM CABLE STRANDER us Taina Hayden MD LABORATORY Final Result [facility] [address] [place] [address], * IMMUNOFIXATION, URINE (07/06/2021 4:03 PM CABLE STRANDER) IMMUNOFIXATION URINE REPORT 07/12/2021 12:10 PM CABLE STRANDER [facility] SARAI GIFFORD Comment: No abnormal bands are detected on immunofixation. Reference Range: No monoclonal proteins detected Test Performed by [facility], [address] [place], [place] Johnathan Ponce M.D., Ph.D., Director of Laboratories , CLIA [id number] URINE SPECIMEN / Unknown 07/06/2021 4:03 PM CABLE STRANDER us Taina Hayden MD URINE ORDERABLES Final Result Performing Organization Address [facility] Co de Phone Number [facility] , [place] [phone] * IMMUNOFIXATION (07/06/2021 4:03 PM CABLE STRANDER) Pathologist [facility] IMMUNOFIXATION SERUM REPORT 07/12/2021 4:25 PM CABLE STRANDER [facility] [place] Comment: No abnormal bands are present on immunofixation. Reference Range: No monoclonal proteins detected Test Performed by [facility], [employer] ([employer]) [facility], [address] [place] [address] Johnathan Ponce M.D., Ph.D., Director of Laboratories , [facility] [id number] 07/06/2021 4:03 PM CABLE STRANDER us Taina Hayden MD LABORATORY Final Result Performing Organization Address [facility] Co de Phone Number [facility] , [place] [phone] * PROTEIN, ELECTROPHORESIS (07/06/2021 4:03 PM CABLE STRANDER) Pathologist [facility] TOTAL PROTEIN (ELECTROPHORESIS SERUM) 6.8 6.1 - 8.1 g/dL 07/10/2021 5:51 AM CABLE STRANDER [facility] [facility] ALBUMIN ELECTROPHORESIS S/P/B 3.9 3.8 - 4.8 g/dL 07/10/2021 5:51 AM CABLE STRANDER [facility] [id number] S/P/B 0.3 0.2 - 0.3 g/dL 07/10/2021 5:51 AM CABLE STRANDER [facility] [id number] S/P/B 0.7 0.5 - 0.9 g/dL 07/10/2021 5:51 AM CABLE STRANDER [facility] [place] [facility] BETA 1 GLOBULIN S/P/B 0.4 0.4 - 0.6 g/dL 07/10/2021 5:51 AM CABLE STRANDER [facility] BETA 2 GLOBULIN S/P/B 0.4 0.2 - 0.5 g/dL 07/10/2021 5:51 AM CABLE STRANDER [facility] GAMMA GLOBULIN S/P/B 1.1 0.8 - 1.7 g/dL 07/10/2021 5:51 AM CABLE STRANDER [facility] ABNORMAL PROTEIN BAND 1 S/P/B REPORT 07/10/2021 5:51 AM CABLE STRANDER [facility] Comment: No M Aureliano detected. ?Reference Range: None Detected ABNORMAL PROTEIN BAND 3 S/P/B END OF REPORT 07/10/2021 5:51 AM CABLE STRANDER [facility] CHACHO MILLER ELECTROPHORESIS INTERPRETATION REPORT 07/10/2021 5:51 AM CABLE STRANDER [facility] Comment: Normal Electrophoretic Pattern Test Performed by Shine Eaton, [facility], [address] [place], [place] Johnathan Ponce M.D., Ph.D., Director of Laboratories , [facility] [id number] 07/06/2021 4:03 PM CABLE STRANDER us Taina Hayden MD LABORATORY Final Result [facility] [place] [address], * VITAMIN B6 (07/06/2021 4:03 PM CABLE STRANDER) VITAMIN B6 S/P/B 13.8 2.1 - 21.7 ng/mL 07/11/2021 9:02 AM CABLE STRANDER [facility] SARAI GIFFORD Comment: Vitamin supplementation within 24 hours prior to blood draw may affect the accuracy of the results. This test was developed and its analytical performance characteristics have been determined by [facility] [place], [place]. It has not been cleared or approved by the U.S. Food and Drug Administration. This assay has been validated pursuant to the CLIA regulations and is used for clinical purposes. Test Performed by [facility] [place], [facility], [address] [place] [address] Johnathan Ponce M.D., Ph.D., Director of Laboratories , CLIA [id number] 07/06/2021 4:03 PM CABLE STRANDER us Taina Hayden MD LABORATORY Final Result Performing Organization Address City/[facility]/ZIP Co de Phone Number [facility] [address], * VITAMIN B1 THIAMINE (07/06/2021 4:03 PM CABLE STRANDER) [facility] VITAMIN B1 S/P/B 23 8 - 30 nmol/L 07/11/2021 4:56 AM CABLE STRANDER [facility] Comment: Vitamin supplementation within 24 hours prior to blood draw may affect the accuracy of the results. This test was developed and its analytical performance characteristics have been determined by [employer] ([employer]) [place], [place]. It has not been cleared or approved by the U.S. Food and Drug Administration. This assay has been validated pursuant to the CLIA regulations and is used for clinical purposes. Test Performed by [facility], [facility], [address] [place] [address] Johnathan Ponce M.D., Ph.D., Director of Laboratories , CLIA [id number] 07/06/2021 4:03 PM CABLE STRANDER us Taina Hayden MD LABORATORY Final Result Performing Organization Address City/[facility]/ZIP Co de Phone Number [facility] [place] , [place] [phone] * ENA2 (SSA & SSB) (07/06/2021 4:03 PM CABLE STRANDER) SSA ANTIBODY <1.0 07/09/2021 10:22 AM CABLE STRANDER [facility] Comment: ?Reference Range: < 1.0 NEG AI SSB ANTIBODY <1.0 07/09/2021 10:22 AM CABLE STRANDER [facility] [place] Comment: ?Reference Range: < 1.0 NEG AI Test Performed by [facility], [employer] ([employer]) [facility], [address] [place] [address] Johnathan Ponce M.D., Ph.D., Director of Laboratories , [facility] [id number] 07/06/2021 4:03 PM CABLE STRANDER Taina Hayden MD LABORATORY Final Result [facility] [address] , [place] [phone] documented in this encounter Visit Diagnoses Diagnosis Sjogren's syndrome ([facility]) Sicca syndrome Fatigue Other malaise and fatigue Arthritis Arthropathy, unspecified, site unspecified Screening for diabetes mellitus Impaired glucose tolerance test Vitamin D deficiency Unspecified vitamin D deficiency Iron deficiency anemia, unspecified documented in this encounter Care Teams Soldering Machine Tender Relationship Specialty Start Date End Date Jaguar Mckeon MD [address] [place] [id number] PCP - General INTERNAL MEDICINE 03/21/21 documented as of this encounter
--- OUTSIDE RECORDS SUMMARY | 2024-06-25 00:31 | XMS_ITS | Encounter Summary ---
Author Organization [facility] Address [address] [place] [address]. [place], [place] [address] [place] [address] Care Team Providers Care Shift Lab Technician Name Role Phone Unavailable Primary Care Provider Unavailabl e Encounter Details Date Type Department Care Team (Late st Contact Info) Description 08/30/2006 Abstract [facility] CONVERSION [address] [place] [address] Sarah Baker PA-C [address] [place] [address] [address] [place] [address] Social History Tobacco Use Types Packs/Day Years [...]
--- OUTSIDE RECORDS SUMMARY | 2024-06-25 00:31 | XMS_ITS | Encounter Summary ---
Author Organization [facility] Address [address] [place] [address]. [place] [address] [place] [address] Care Team Providers Care Pricing Manager Name Role Phone Unavailable Primary Care Provider Unavailabl e Encounter Details Date Type Department Care Team (Late st Contact Info) Description 11/17/2010 Abstract [facility] [address] [place] [id number] Social History Tobacco Use Types Packs/Day Years [...] as of this encounter Visit Diagnoses Diagnosis Abnormal results of thyroid function studies Nonspecific abnormal results of thyroid function study documented in this encounter
--- OUTSIDE RECORDS SUMMARY | 2024-06-25 00:31 | XMS_ITS | Encounter Summary ---
Author Organization [facility] Address [address] [place] [address]. [place], [place] [address] [place] [address] Care Team Providers Care Windows Systems Architect Name Role Phone Unavailable Primary Care Provider Unavailabl e Reason for Visit * Reason Onset Date Comments Consult 12/22/2020 Encounter Details Date Type Department Care Team (Late st Contact Info) Description 12/22/[address] [address] Lizeth Loza RMA Consult Social History Tobacco Use Types Packs/Day Years Used Date Smoking Tobacco: Never Assessed Comments Unknown Sex and Gender Information Value Date Recorded Sex Assigned at Not on file Legal Sex Female 8:30 PM CDT Gender Identity Female 09/21/2021 5:07 AM CDT Sexual Orientation Straight 09/21/2021 5: 07 AM CDT documented as of this encounter Progress Notes * BRE Pettit - 12/22/2020 11:09 AM CDT Left message on vm for patient to schedule cardiology consult per Self after receiving an email documented in this encounter Plan of Treatment Not on file documented as of this encounter Visit Diagnoses Not on filedocumented in this encounter
--- OUTSIDE RECORDS SUMMARY | 2024-06-25 00:31 | XMS_ITS | Encounter Summary ---
Author Organization [facility] Address [address] [place] [address]. [place] [address] [place] [address] Care Team Providers Care Position Classifier Name Role Phone Unavailable Primary Care Provider Unavailabl e Encounter Details Date Type Department Care Team (Late st Contact Info) Description 11/14/2013 Abstract [facility] [address] [place] [address] Ramin Moreau MD [facility] [place] [address] Social History Tobacco Use Types Packs/Day Years [...] as of this encounter Visit Diagnoses Diagnosis Major depressive disorder, recurrent episode, severe ([facility]) Major depressive disorder, recurrent episode, severe, without mention of psychotic behavior documented in this encounter
--- OUTSIDE RECORDS SUMMARY | 2024-06-25 00:31 | XMS_ITS | Encounter Summary ---
Author Organization [facility] Address [address] [place] [address]. [place] [address] [place] [address] Care Team Providers Care Web Offset Press Feeder Name Role Phone Unavailable Primary Care Provider Unavailabl e Encounter Details Date Type Department Care Team (Late st Contact Info) Description 09/14/2010 Abstract [facility] [address] [place] [id number] Social History Tobacco Use Types Packs/Day Years [...]
--- OUTSIDE RECORDS SUMMARY | 2024-06-25 00:31 | XMS_ITS | Encounter Summary ---
Author Organization [facility] Address [address] [place] [address]. [place], [place] [address] [place] [address] Care Team Providers Care Loan Servicing Officer Name Role Phone Unavailable Primary Care Provider Unavailabl e Encounter Details Date Type Department Care Team (Late st Contact Info) Description 07/11/2006 Abstract [facility] CONVERSION [address] [place] [address] Jimbo Hernández, DPAdonis [facility] [place] [address] Social History Tobacco Use Types Packs/Day Years [...]
--- OUTSIDE RECORDS SUMMARY | 2024-06-25 00:31 | XMS_ITS | Encounter Summary ---
Author Organization [facility] Address [address] [place] [address]. [place], [place] [address] [place] [address] Care Team Providers Care Pulpwood Dealer Name Role Phone Unavailable Primary Care Provider Unavailabl e Encounter Details Date Type Department Care Team (Latest Contact Info) Description 09/17/2020 2:16 PM CLASSIFICATION CLERK - 09/17/2020 11:59 PM CLASSIFICATION CLERK Hospital Encounter [facility] [address] [place] [phone] Damion Leung MD Discharge Disposition: Home or Self Care [...] COVID-19? No / Unsure 08/20/2020 3:01 PM CLASSIFICATION CLERK documented as of this encounter Plan of Treatment Not on file documented as of this encounter Visit Diagnoses Diagnosis Need for prophylactic vaccination against viral disease- Primary Need for prophylactic vaccination and inoculation against other viral diseases documented in this encounter
--- OUTSIDE RECORDS SUMMARY | 2024-06-25 00:32 | XMS_ITS | Encounter Summary ---
Author Organization [facility] Address [address] [place] [address]. [place], [place] [address] [place] [address] Care Team Providers Care Steam Power Plant Operator Name Role Phone Unavailable Primary Care Provider Unavailabl e Encounter Details Date Type Department Care Team (Late st Contact Info) Description 12/03/2003 Abstract [facility] CONVERSION [address] [place], [place] [id number] [place] [address] [id number] Social History Tobacco Use Types Packs/Day Years [...]
--- OUTSIDE RECORDS SUMMARY | 2024-06-25 00:32 | XMS_ITS | Encounter Summary ---
Author Organization [facility] Address [address] [place] [address]. [place] [address] [place] [address] Care Team Providers Care Grassroots Organizer Name Role Phone Unavailable Primary Care Provider Unavailabl e Encounter Details Date Type Department Care Team (Late st Contact Info) Description 05/14/1996 Abstract [facility] CONVERSION [address] [place] [address] , Generic Conversion, Social History Tobacco Use [...]
--- OUTSIDE RECORDS SUMMARY | 2024-06-25 00:32 | XMS_ITS | Encounter Summary ---
Author Organization [facility] Address [address] [place] [address]. [place] [address] [place] [address] Care Team Providers Care Social Welfare Clerk Name Role Phone Unavailable Primary Care Provider Unavailabl e Encounter Details Date Type Department Care Team (Late st Contact Info) Description 09/26/1999 Abstract [facility] CONVERSION [address] [place] [address] , Generic Conversion, Social History Tobacco Use [...]
--- OUTSIDE RECORDS SUMMARY | 2024-06-25 00:32 | XMS_ITS | Encounter Summary ---
Author Organization [facility] Address [address] [place] [address]. [place], [place] [address] [place] [address] Care Team Providers Care Mechanical Systems Control Engineer Name Role Phone Unavailable Primary Care Provider Unavailabl e Encounter Details Date Type Department Care Team (Late st Contact Info) Description 12/01/1994 Abstract [facility] CONVERSION [address] [place] [address] , Generic Conversion, Social History Tobacco Use [...]
--- OUTSIDE RECORDS SUMMARY | 2024-06-25 00:32 | XMS_ITS | Encounter Summary ---
Author Organization [facility] Address [address] [place] [address]. [place], [place] [address] [place] [address] Care Team Providers Care Front Desk Clerk Name Role Phone Unavailable Primary Care Provider Unavailabl e Encounter Details Date Type Department Care Team (Late st Contact Info) Description 08/29/2005 Abstract [facility] CONVERSION [address] [place] [address] Damien Galindo MD Social History Tobacco Use Types Packs/Day [...]
--- OUTSIDE RECORDS SUMMARY | 2024-06-25 00:32 | XMS_ITS | Encounter Summary ---
Author Organization [facility] Address [address] [place] [address]. [place], [place] [address] [place] [address] Care Team Providers Care Web Mobile Designer Name Role Phone Unavailable Primary Care Provider Unavailabl e Encounter Details Date Type Department Care Team (Late st Contact Info) Description 12/18/2005 Abstract [facility] CONVERSION [address] [place] [address] Jaguar Mckeon MD [address] [place] [address] Social History Tobacco Use Types Packs/Day Years [...]
--- OUTSIDE RECORDS SUMMARY | 2024-06-25 00:32 | XMS_ITS | Encounter Summary ---
Author Organization [facility] Address [address] [place] [address]. [place] [address] [place] [address] Care Team Providers Care Founder Chairman And Chief Creative Officer Name Role Phone Unavailable Primary Care Provider Unavailabl e Encounter Details Date Type Department Care Team (Late st Contact Info) Description 06/18/2003 Abstract [facility] CONVERSION [address] [place] [address] , Generic Conversion, Social History Tobacco Use [...]
--- OUTSIDE RECORDS SUMMARY | 2024-06-25 00:32 | XMS_ITS | Encounter Summary ---
Author Organization [facility] Address [address] [place] [address]. [place] [address] [place] [address] Care Team Providers Care Crm Specialist Name Role Phone Unavailable Primary Care Provider Unavailabl e Encounter Details Date Type Department Care Team (Late st Contact Info) Description 02/28/2003 Abstract [facility] CONVERSION [address] [place] [address] , Generic Conversion, Social History Tobacco Use [...]
--- OUTSIDE RECORDS SUMMARY | 2024-06-25 00:32 | XMS_ITS | Encounter Summary ---
Author Organization [facility] Address [address] [place] [address]. [place], [place] [address] [place] [address] Care Team Providers Care Oil Prospecting Observer Name Role Phone Unavailable Primary Care Provider Unavailabl e Encounter Details Date Type Department Care Team (Late st Contact Info) Description 04/06/2005 Abstract [facility] CONVERSION [address] [place] [address] [place] [address] [address] Social History Tobacco Use Types Packs/Day Years [...]
--- OUTSIDE RECORDS SUMMARY | 2024-06-25 00:32 | XMS_ITS | Encounter Summary ---
Author Organization [facility] Address [address] [place] [address]. [place], [place] [address] [place] [address] Care Team Providers Care Risk Management Analyst Name Role Phone Unavailable Primary Care Provider Unavailabl e Encounter Details Date Type Department Care Team (Late st Contact Info) Description 10/06/1995 Abstract [facility] CONVERSION [address] [place] [address] , Generic Conversion, Social History Tobacco Use [...]
--- OUTSIDE RECORDS SUMMARY | 2024-06-25 00:32 | XMS_ITS | Encounter Summary ---
Author Organization [facility] Address [address] [place] [address]. [place] [address] [place] [address] Care Team Providers Care Plasma Cutting Machine Operator Name Role Phone Unavailable Primary Care Provider Unavailabl e Encounter Details Date Type Department Care Team (Late st Contact Info) Description 06/22/2006 Abstract [facility] [address] [place] [address] Jimbo Hernández, BRAYDON [facility] [place] [address] Social History Tobacco Use Types Packs/Day Years [...]
--- OUTSIDE RECORDS SUMMARY | 2024-06-25 00:32 | XMS_ITS | Encounter Summary ---
Author Organization [facility] Address [address] [place] [address]. [place] [address] [place] [address] Care Team Providers Care Socially Responsible Investment Adviser Name Role Phone Unavailable Primary Care Provider Unavailabl e Encounter Details Date Type Department Care Team (Late st Contact Info) Description 05/14/1999 Abstract [facility] CONVERSION [address] [place] [address] , Generic Conversion, Social History Tobacco Use [...]
--- OUTSIDE RECORDS SUMMARY | 2024-06-25 00:32 | XMS_ITS | Encounter Summary ---
Author Organization [facility] Address [address] [place] [address]. [place], [place] [address] [place] [address] Care Team Providers Care Neuroscience Specialist Name Role Phone Unavailable Primary Care Provider Unavailabl e Encounter Details Date Type Department Care Team (Late st Contact Info) Description 01/23/2001 Abstract [facility] CONVERSION [address] [place], [place] [id number] Jaguar Mckeon MD [address] [place] [address] Social History Tobacco Use Types Packs/Day Years [...]
--- OUTSIDE RECORDS SUMMARY | 2024-06-25 00:32 | XMS_ITS | Encounter Summary ---
Author Organization [facility] Address [address] [place] [address]. [place] [address] [place] [address] Care Team Providers Care Design Teacher Name Role Phone Unavailable Primary Care Provider Unavailabl e Encounter Details Date Type Department Care Team (Late st Contact Info) Description 04/04/2000 Abstract [facility] CONVERSION [address] [place] [address] , Generic Conversion, Social History Tobacco Use [...]
--- OUTSIDE RECORDS SUMMARY | 2024-06-25 00:32 | XMS_ITS | Encounter Summary ---
Author Organization [facility] Address [address] [place] [address]. [place] [address] [place] [address] Care Team Providers Care Audiovisual Production Specialist Name Role Phone Unavailable Primary Care Provider Unavailabl e Encounter Details Date Type Department Care Team (Late st Contact Info) Description 07/06/2003 Abstract [facility] CONVERSION [address] [place] [address] , Generic Conversion, Social History Tobacco Use [...]
--- OUTSIDE RECORDS SUMMARY | 2024-06-25 00:32 | XMS_ITS | Encounter Summary ---
Author Organization [facility] Address [address] [place] [address]. [place] [address] [place] [address] Care Team Providers Care Combination Building Inspector Name Role Phone Unavailable Primary Care Provider Unavailabl e Encounter Details Date Type Department Care Team (Late st Contact Info) Description 02/23/1994 Abstract [facility] CONVERSION [address] [place] [address] , Generic Conversion, Social History Tobacco Use [...]
--- OUTSIDE RECORDS SUMMARY | 2024-06-25 00:32 | XMS_ITS | Encounter Summary ---
Author Organization [facility] Address [address] [place] [address]. [place] [address] [place] [address] Care Team Providers Care General House Worker Name Role Phone Unavailable Primary Care Provider Unavailabl e Encounter Details Date Type Department Care Team (Late st Contact Info) Description 01/05/2005 Abstract [facility] [address] [place] [place] [id number] Chase Easton MD [address] [phone] Social History Tobacco Use Types Packs/Day Years [...]
--- OUTSIDE RECORDS SUMMARY | 2024-06-25 00:32 | XMS_ITS | Encounter Summary ---
Author Organization [facility] Address [address] [place] [address]. [place] [address] [place] [address] Care Team Providers Care Head Athletic Trainer/Strength Coach Name Role Phone Unavailable Primary Care Provider Unavailabl e Encounter Details Date Type Department Care Team (Late st Contact Info) Description 03/30/2003 Abstract [facility] CONVERSION [address] [place] [address] , Generic Conversion, Social History Tobacco Use [...]
--- OUTSIDE RECORDS SUMMARY | 2024-06-25 00:32 | XMS_ITS | Encounter Summary ---
Author Organization [facility] Address [address] [place] [address]. [place], [place] [address] [place] [address] Care Team Providers Care Chief Juvenile Probation Officer Name Role Phone Unavailable Primary Care Provider Unavailabl e Encounter Details Date Type Department Care Team (Late st Contact Info) Description 11/07/2003 Abstract [facility] CONVERSION [address] [place], [place] [id number] Jaguar Mckeon MD [facility] [place] [address] Social History Tobacco Use Types Packs/Day Years [...]
--- OUTSIDE RECORDS SUMMARY | 2024-06-25 00:32 | XMS_ITS | Encounter Summary ---
Author Organization [facility] Address [address] [place] [address]. [place], [place] [address] [place] [address] Care Team Providers Care Molder Bench Name Role Phone Unavailable Primary Care Provider Unavailabl e Encounter Details Date Type Department Care Team (Late st Contact Info) Description 04/27/2005 Abstract [facility] CONVERSION [address] [place] [address] Damien Galindo MD Social History Tobacco Use [...]
--- OUTSIDE RECORDS SUMMARY | 2024-06-25 00:32 | XMS_ITS | Encounter Summary ---
Author Organization [facility] Address [address] [place] [address]. [place], [place] [address] [place] [address] Care Team Providers Care Slide Forming Machine Operator Name Role Phone Unavailable Primary Care Provider Unavailabl e Encounter Details Date Type Department Care Team (Late st Contact Info) Description 11/27/1994 Abstract [facility] CONVERSION [address] [place] [address] , Generic Conversion, Social History Tobacco Use [...]
--- OUTSIDE RECORDS SUMMARY | 2024-06-25 00:32 | XMS_ITS | Encounter Summary ---
Author Organization [facility] Address [address] [place] [address]. [place], [place] [address] [place] [address] Care Team Providers Care Vp Delivery Name Role Phone Unavailable Primary Care Provider Unavailabl e Encounter Details Date Type Department Care Team (Late st Contact Info) Description 04/17/1996 Abstract [facility] CONVERSION [address] [place] [address] , Generic Conversion, Social History Tobacco Use [...]
--- OUTSIDE RECORDS SUMMARY | 2024-06-25 00:32 | XMS_ITS | Encounter Summary ---
Author Organization [facility] Address [address] [place] [address]. [place], [place] [address] [place] [address] Care Team Providers Care Legal Cashier Name Role Phone Unavailable Primary Care Provider Unavailabl e Encounter Details Date Type Department Care Team (Late st Contact Info) Description 10/08/1995 Abstract [facility] CONVERSION [address] [place] [address] , Generic Conversion, Social History Tobacco Use [...]
--- OUTSIDE RECORDS SUMMARY | 2024-06-25 00:32 | XMS_ITS | Encounter Summary ---
Author Organization [facility] Address [address] [place] [address]. [place], [place] [address] [place] [address] Care Team Providers Care Magnetizer Name Role Phone Unavailable Primary Care Provider Unavailabl e Encounter Details Date Type Department Care Team (Late st Contact Info) Description 05/29/2006 Abstract [facility] CONVERSION [address] [place] [address] Jimbo Hernández, DPAdonis [facility] [place] [address] Social History Tobacco Use Types Packs/Day Years [...]
--- OUTSIDE RECORDS SUMMARY | 2024-06-25 00:32 | XMS_ITS | Encounter Summary ---
Author Organization [facility] Address [address] [place] [address]. [place], [place] [address] [place] [address] Care Team Providers Care Ornamental Metal Worker Name Role Phone Unavailable Primary Care Provider Unavailabl e Encounter Details Date Type Department Care Team (Late st Contact Info) Description 04/03/2001 Abstract [facility] [address] , Karen Rodriguez MD Social History Tobacco Use Types Packs/Day [...]
--- OUTSIDE RECORDS SUMMARY | 2024-06-25 00:38 | XMS_ITS | Encounter Summary ---
Author Organization [facility] Address [address] [address] Care Team Providers Care Toe Puncher Name Role Phone Sarah Baker Primary Care Provider [phone] Reason for Visit * Reason Comments Cough Pt c/o cough for abo ut 1 week. 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 Gender Identity Not on file Sexual Orientation Not on file documented as of this encounter Last Filed Vital Signs Vital Sign Reading Time Taken Comments Blood Pressure 166/98 01/08/2023 8:27 AM CDT Pulse 60 01/08/2023 8:27 AM CDT Temperature 36.9 ??C (98.4 ??F) 01/08/2023 8:27 AM CD T Respiratory Rate 20 01/08/2023 8:27 AM CDT Oxygen Saturation 98% 01/08/2023 8:27 AM CDT Inhaled Oxygen Concentration - - Weight 89.8 kg (198 lb) 01/08/2023 8:27 AM CDT Height 165.1 cm (5' 5 ) 01/08/2023 8:27 AM CDT Body Mass Index 32.95 01/08/2023 8:27 AM CDT documented in this encounter Patient Instructions * Patient Instructions* Marina Villeda NP - 01/08/2023 8:30 AM CDT Tessalon as prescribed for cough. Avoid irritants such as cigarette smoke, pollen, dust, etc as this will aggravate cough. Suck on cough drops or hard candies to soothe a dry or sore throat. Cough drops won't stop your cough, but they may make your throat feel better. Over the counter loratadine (Claritin) or cetirizine (Zyrtec) to reduce secretions. Mucinex to thin secretions Breathe moist air from a humidifier, a hot shower, or a sink filled with hot water. The heat and moisture can help keep mucus in your airways moist so you can cough it out easily. Use nonprescription medicine, such as acetaminophen, ibuprofen, or aspirin, to relieve fever and body aches. Don't give aspirin to anyone younger than age 20. Rest more than usual. Drink plenty of fluids so that you do not become dehydrated and to keep mucous thin. Use an azqo-sgh-racwhub cough medicine such as Delsym or Robitussin. (Cough medicines may not be safe for young children or for people who have certain health problems.) Cough suppressants may help you to stop coughing. Expectorants, such as Mucinex, can help you bring up mucus when you cough. Follow up with primary care physician in 1 week, or sooner if symptoms worsen. GO TO ER WITH ANY WORSENING OF SYMPTOMS INCLUDING, BUT NOT LIMITED TO: SUDDEN HIGH FEVER, DIFFICULTY BREATHING OR CATCHING YOUR BREATH, OR SHORTNESS OF BREATH. * Attachments The following attachments cannot be sent through Care Everywhere. * Acute Cough (Underwriting Technician) (Malawian) documented in this encounter Ordered Prescriptions Prescription Sig Dispense Quantity Refills Last Filled Start Date End Date benzonatate (TESSALON) 200 mg capsuleIndications :Acute cough Take 1 capsule (200 mg total) by mouth 3 (three) times a day as needed for cough 30 capsule 01/08/2023 documented in this encounter Progress Notes * Marina Villeda, TURNTABLE WORKER - 01/08/2023 8:30 AM CDT Images from the original note were not included. Patient ID: Arlet Billings is a 72 y.o. female followed by Sarah Baker PA Chief Complaint Patient presents with Cough Pt c/o cough for about 1 week. She states she was outdoors a lot last weekend and that's when the cough started Patient presents to the clinic with reports of cough and congestion for 1 week. Patient denies chest pain, difficulty breathing, sinus pain, headaches, vision changes, rash, vomiting, and diarrhea. She has taken Claritin and Benadryl as needed for her symptoms. Patient denies any known sick contacts, but reports that she works at [employer]. Review of Systems Constitutional: Negative for chills, fatigue and fever. HENT: Positive for congestion. Negative for ear pain, postnasal drip, rhinorrhea and sore throat. Respiratory: Positive for cough. Negative for chest tightness, shortness of breath and wheezing. Cardiovascular: Negative for chest pain. Gastrointestinal: Negative for diarrhea, nausea and vomiting. Musculoskeletal: Negative for myalgias. Neurological: Negative for headaches. Vitals: 01/08/23 0827 BP: 166/98 Pulse: 60 Resp: 20 Temp: 36.9 ??C (98.4 ??F) SpO2: 98% Weight: 89.8 kg (198 lb) Height: 165.1 cm (5' 5 ) No results found for this or any previous visit (from the past 24 hour(s)). Physical Exam Vitals reviewed. Constitutional: General: She is not in acute distress. Appearance: She is well-developed. She is not ill-appearing. HENT: Right Ear: Tympanic membrane, ear canal and external ear normal. Tympanic membrane is not injected,erythematous or bulging. Left Ear: Tympanic membrane, ear canal and external ear normal. Tympanic membrane is not injected, erythematous or bulging. Nose: Congestion present. No rhinorrhea. Right Sinus: No maxillary sinus tenderness or frontal sinus tenderness. Left Sinus: No maxillary sinus tenderness or frontal sinus tenderness. Mouth/Throat: Lips: [place]. Mouth: Mucous membranes are moist. Pharynx: Uvula midline. No pharyngeal swelling, oropharyngeal exudate or posterior oropharyngeal erythema. Cardiovascular: Rate and Rhythm: Normal rate and regular rhythm. Pulmonary: Effort: Pulmonary effort is normal. No respiratory distress. Breath sounds: Normal breath sounds. No decreased breath sounds, wheezing or rhonchi. Comments: Dry Cough observed during exam Lymphadenopathy: Cervical: No cervical adenopathy. Skin: General: Skin is warm and dry. Neurological: Mental Status: She is alert and oriented to person, place, and time. Diagnoses and all orders for this visit: Acute cough (Primary) - benzonatate (TESSALON) 200 mg capsule; Take 1 capsule (200 mg total) by mouth 3 (three) times a day as needed for cough - Influenza A/B, RSV, and COVID-19 PCR Nasopharyngeal; Future Orders Placed This Encounter Procedures Influenza A/B, RSV, and COVID-19 PCR Nasopharyngeal Standing Status: Future Standing Expiration Date: 01/09/2024 Order Specific Question: Is the Patient experiencing symptoms consistent with COVID? Answer: Yes Order Specific Question: Date of Symptom Onset Answer: 01/06/2023 Order Specific Question: Reason for testing? Answer: Symptomatic Assessment/Plan # acute upper respiatory infection --likely viral --exam findings warrant no antibiotics, antiviral, or steroid at this time --recommended antihistamine with or without decongestant pending symptoms --Pnmx-lig-ipdvgwi antihistamine such as Claritin or Zyrtec will aid in alleviation of symptoms such as nasal drainage and sinus drainage. Benadryl can be sedating, I suggest using it at bedtime. --Nasal spray, such as Flonase may also aid in nasal congestion. This may also be purchased over the counter. --COVID/FLU swab pending PCR --ED presentation with one or more of the following symptoms: fever uncontrolled with antipyretics,shortness of breath, chest discomfort, uncontrolled n/v/d --f/u with PCP in 5-7 days if symptoms do not improve/worsen Disposition Treatment plan including expectations, follow up, and return precautions discussed with patient/parent, verbalizes understanding. Medication dosage, use, and potential adverse reactions discussed with patient/parent. Advised to follow up with PCP if symptoms do not resolve as expected or sooner if condition worsens. Discussed Signs/symptoms warranting ER evaluation including worsening fever, increased shortness ofbreath, chest pain, severe N/V/D, or any other worrisome symptoms Patient and/or guardian was given an opportunity to ask questions, questions answered. Patient Education Tessalon as prescribed for cough. Avoid irritants such as cigarette smoke, pollen, dust, etc as this will aggravate cough. Suck on cough drops or hard candies to soothe a dry or sore throat. Cough drops won't stop your cough, but they may make your throat feel better. Over the counter loratadine (Claritin) or cetirizine (Zyrtec) to reduce secretions. Mucinex to thin secretions Breathe moist air from a humidifier, a hot shower, or a sink filled with hot water. The heat and moisture can help keep mucus in your airways moist so you can cough it out easily. Use nonprescription medicine, such as acetaminophen, ibuprofen, or aspirin, to relieve fever and body aches. Don't give aspirin to anyone younger than age 20. Rest more than usual. Drink plenty of fluids so that you do not become dehydrated and to keep mucous thin. Use an affw-rwq-haaqfeh cough medicine such as Delsym or Robitussin. (Cough medicines may not be safe for young children or for people who have certain health problems.) Cough suppressants may help you to stop coughing. Expectorants, such as Mucinex, can help you bring up mucus when you cough. Follow up with primary care physician in 1 week, or sooner if symptoms worsen. GO TO ER WITH ANY WORSENING OF SYMPTOMS INCLUDING, BUT NOT LIMITED TO: SUDDEN HIGH FEVER, DIFFICULTY BREATHING OR CATCHING YOUR BREATH, OR SHORTNESS OF BREATH. Marina Villeda NP documented in this encounter Plan of Treatment Not on file documented as of this encounter Results * Influenza A/B, RSV, and COVID-19 PCR Nasopharyngeal (01/08/2023 8:41 AM CDT) COVID-19 RNA Negative Negative [facility] Influenza A RNA Negative Negative [facility] Influenza B RNA Negative Negative [facility] RSV RNA Negative Negative [facility] Comment: Interpretive data: This test is performed using the [employer] Xpert Xpress CoV-2/Flu/RSV plus assay. This is a multiplex, real-time reverse transcriptase PCR assay intended for the qualitative detection of nucleic acid from SARS-CoV-2, influenza A, influenza B, and respiratory syncytial virus. This assay has been reviewed by the FDA for Emergency Use Authorization (EUA). The performance characteristics have been verified by the performing laboratory. Results must be considered in the clinical context, and a negative result does not rule out infection. Interpretive Data last revised 2021. Nasopharyngeal 01/08/2023 8: 41 AM CDT 01/08/2023 4:05 PM CDT Narrative [facility] - 01/08/2023 5:06 PM CDT Is the Patient experiencing symptoms consistent with COVID?->Yes Date of Symptom Onset->01/06/23 Reason for testing?->Symptomatic Marina Villeda NP LAB MICROBIOLOGY - GENERAL ORD ERABLES Final Result [facility] [id number] Department of Laboratories [place] [phone] documented in this encounter Visit Diagnoses Diagnosis Acute cough- Primary Acute cough documented in this encounter Discontinued Medications Medication Sig Discontinue Reason Start Date End Da te benzonatate (TESSALON) 100 mg capsule TAKE 1 CAPSULE BY MOUTH THREE TIMES A DAY NEEDED FOR COUGH Therapy completed 12/05/2022 01/08/2023 documented as of this encounter Historical Medications * This list may reflect changes made after this encounter. topiramate (TOPAMAX) 25 mg tablet Take 1 tablet (25 mg total) by mouth 2 (two) times a day 10/05/2022 rosuvastatin (CRESTOR) 5 mg tablet Take 1 tablet (5 mg total) by mouth every other day 12/05/2022 primidone (MYSOLINE) 50 mg tablet Take by mouth nightly 10/24/2022 omeprazole (PriLOSEC) 40 mg capsule 1 capsule (40 mg total) daily meclizine (ANTIVERT) 25 mg tablet every 8 hours gabapentin (NEURONTIN) 400 mg capsule 1 capsule (400 mg total) every 8 hours gabapentin (NEURONTIN) 100 mg capsule 01/01/2023 furosemide (LASIX) 40 mg tablet daily cycloSPORINE (Restasis) 0.05 % ophthalmic emulsion every 12 hours calcium carbonate (Tums E-X) 750 mg (300 mg elemental) tablet,chewable daily Xanax 0.5 mg tablet every 12 hours benzonatate (TESSALON) 100 mg capsule TAKE 1 CAPSULE BY MOUTH THREE TIMES A DAY NEEDED FOR COUGH 12/05/2022 01/08/2023 added in this encounter Additional Health Concerns Infection Onset Date Last Indicated Resolved Time COVID: Suspected 01/08/2023 01/08/2023 01/08/2023 5:07 PM CDT documented as of this encounter Care Teams Toe Puncher Relationship Specialty Start Date End Date Sarah Baker PA [address] [place] [id number] PCP - General Family Practice 01/08/23 documented as of this encounter
--- OUTSIDE RECORDS SUMMARY | 2024-06-25 00:38 | XMS_ITS | Encounter Summary ---
Author Organization [facility] Address [address] [place] [address] Care Team Providers Care Nutritional Services Cook Name Role Phone Unavailable Primary Care Provider Unavailabl e Encounter Details Date Type Department Care Team (Latest Contact Info) Description 08/29/2001 Outpatient Historical HIS CARDIOPULMONARY AidaEverton rojo MD SKIN SENSATION DISTURB (Primary Dx) Social History Tobacco Use Types Packs/Day Years Used Date Smoking Tobacco: Never Assessed Sex and Gender Information Value Date Recorded Sex Assigned at Not on file Gender Identity Not on file Sexual Orientation Not on file documented as of this encounter Plan of Treatment Not on file documented as of this encounter Visit Diagnoses Diagnosis Disturbance of skin sensation- Primary documented in this encounter
--- OUTSIDE RECORDS SUMMARY | 2024-06-25 00:38 | XMS_ITS | Encounter Summary ---
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 Gender Identity Not on file Sexual Orientation Not on file documented as of this encounter Medications at Time of Discharge benzonatate (TESSALON) 200 mg capsuleIndication s:Acute cough Take 1 capsule (200 mg total) by mouth 3 (three) times a day as needed for cough 30 capsule 01/08/2023 calcium carbonate (Tums E-X) 750 mg (300 mg elemental) tablet,chewable daily cycloSPORINE (Restasis) 0.05 % ophthalmic emulsion every 12 hours furosemide (LASIX) 40 mg tablet daily gabapentin (NEURONTIN) 100 mg capsule 01/01/2023 gabapentin (NEURONTIN) 400 mg capsule 1 capsule (400 mg total) every 8 hours meclizine (ANTIVERT) 25 mg tablet every 8 hours omeprazole (PriLOSEC) 40 mg capsule 1 capsule (40 mg total) daily primidone (MYSOLINE) 50 mg tablet Take by mouth nightly 10/24/2022 rosuvastatin (CRESTOR) 5 mg tablet Take 1 tablet (5 mg total) by mouth every other day 12/05/2022 topiramate (TOPAMAX) 25 mg tablet Take 1 tablet (25 mg total) by mouth 2 (two) times a day 10/05/2022 Xanax 0.5 mg tablet every 12 hours documented as of this encounter Discharge Disposition Disposition Code Departure Means Destination Discharge to home or self care documented in this encounter Miscellaneous Notes * Result Encounter Note - Yony Salazar MA - 01/08/2023 11:59 PM CDT LMTRC * Result Encounter Note - Yony Salazar MA - 01/08/2023 11:59 PM CDT Results given * Result Encounter Note - Yony Salazar MA - 01/08/2023 7:11 PM CDT LMTRC * Result Encounter Note - Marina Villeda NP - 01/08/2023 5:06 PM CDT Please notify patient of negative COVID-19/RSV/FLU test. Patient should rest, stay hydrated, and take OTC medications as needed. Monitor symptoms and if they worsen follow up with primary care doctoror ER if needed. documented in this encounter Plan of Treatment Not on file documented as of this encounter Procedures Procedure Name Priority Date/Time Associated Diagnosis Comments INFLUENZA A/B, RSV, AND COVID-19 PCR Routine 01/08/2023 8:41 AM CDT Acute cough documented in this encounter Results * Influenza A/B, RSV, and COVID-19 PCR Nasopharyngeal (01/08/2023 8:41 AM CDT) COVID-19 RNA Negative Negative [facility] Influenza A RNA Negative Negative [facility] Influenza B RNA Negative Negative [facility] RSV RNA Negative Negative [facility] Comment: Interpretive data: This test is performed using the [employer] Xpert Xpress CoV-2/Flu/RSV plus assay. This is [...] AM CDT 01/08/2023 4:05 PM CDT Narrative [facility] - 01/08/2023 5:06 PM CDT Is the Patient experiencing symptoms consistent with COVID?->Yes Date of Symptom Onset->01/06/23 Reason for testing?->Symptomatic us Marina Villeda MACHINE SETTER AND REPAIRER LAB MICROBIOLOGY - GENERAL ORD ERABLES Final Result [facility] [address] [place] [address] documented in this encounter Visit Diagnoses Diagnosis Acute cough documented in this encounter Additional Health Concerns Infection Onset Date Last Indicated Resolved Time COVID: Suspected 01/08/2023 01/08/2023 01/08/2023 5:07 PM CDT documented as of this encounter Care Teams Arborer Relationship Specialty Start Date End Date Sarah Baker PA [address] [place] [id number] PCP - General Family Practice 01/08/23 documented as of this encounter
--- OUTSIDE RECORDS SUMMARY | 2024-06-25 00:38 | XMS_ITS | Clinical Summary ---
Author Organization [facility] Address [address] [facility] Attn: Epic Prelude ADT TERESSA AMEZCUA TABITHA [address] Care Team Providers Care Driver Merchandiser Name Role Phone Unavailable Primary Care Provider Unavailabl e Social History Tobacco Use Types Packs/Day Years Used Date Smoking Tobacco: Never Assessed Sex and Gender Information Value Date Recorded Sex Assigned at Not on file Gender Identity Not on file Sexual Orientation Not on file Plan of Treatment Health Maintenance Due Date Last Done Comments DTAP/TDAP/TD VACCINES (1 - Tdap) 1967 ZOSTER VACCINE (1 of 2) 1998 OSTEOPOROSIS SCREENING 2013 PNEUMOCOCCAL VACCINE 65+ YEARS (1 of 1 - PCV) 06/17/20 13 RSV VACCINE (60+ or ) (1 - 1-dose 75+ series) 2023 INFLUENZA VACCINE (#1) 2024
--- OUTSIDE RECORDS SUMMARY | 2024-06-25 00:38 | XMS_ITS | Encounter Summary ---
Author Organization [facility] Address [address] [place] [address] Care Team Providers Care Cake Tester Name Role Phone Unavailable Primary Care Provider Unavailabl e Encounter Details Date Type Department Care Team (Latest Contact Info) Description 08/27/2001 Outpatient Historical HIS GIRISH Parra, Everton Mendoza MD CERVICAL DISC DEGEN (Primary Dx) Social History Tobacco Use Types Packs/Day Years Used Date Smoking Tobacco: Never Assessed Sex and Gender Information Value Date Recorded Sex Assigned at Not on file Gender Identity Not on file Sexual Orientation Not on file documented as of this encounter Plan of Treatment Not on file documented as of this encounter Visit Diagnoses Diagnosis Degeneration of cervical intervertebral disc- Primary documented in this encounter
--- OUTSIDE RECORDS SUMMARY | 2024-06-25 00:38 | XMS_ITS | Encounter Summary ---
Author Organization [facility] Address [address] [address] Care Team Providers Care Home Care Giver Name Role Phone Sarah Baker Primary Care Provider [phone] Reason for Visit * Reason Onset Date Comments test results 01/11/2023 Encounter Details Date Type Department Care Team (Late st Contact Info) Description 01/11/2023 Telephone [facility] Outpatient Center [address] [address] Marina Villeda NP [address] [place] [address] [address] [place] [address] test results Social History Tobacco Use Types Packs/Day Years Used Date Smoking Tobacco: Never Assessed Comments Unknown Sex and Gender Information Value Date Recorded Sex Assigned at Not on file 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 She was given the below from Marina verbatim, Please notify patient of negative COVID-19/RSV/FLU test. Patient should rest, stay hydrated, and take OTC medications as needed. Monitor symptoms and if they worsen follow up with primary care doctor or ER if needed. documented in this encounter Plan of Treatment Not on file documented as of this encounter Visit Diagnoses Not on filedocumented in this encounter Care Teams Home Care Giver Relationship Specialty Start Date End Date Sarah Baker PA [facility] [place] [address] PCP - General Family Practice 01/08/23 documented as of this encounter
--- OUTSIDE RECORDS SUMMARY | 2024-06-25 00:38 | XMS_ITS | Referral Summary ---
Author Organization [facility] [address] [place] Address [address] [place] [address] Care Team Providers Care State Fire Marshal Name Role Phone Sarah Baker Primary Care Provider [phone] Allergies Active Allergy Reactions Criticality Noted Date Comments Meperidine Unknown 01/08/2023 Prochlorperazine Medications Xanax 0.5 mg tablet every 12 hours Active calcium carbonate (Tums E-X) 750 mg (300 mg elemental) tablet,chewable daily Acti ve cycloSPORINE (Restasis) 0.05 % ophthalmic emulsion every 12 hours Active furosemide (LASIX) 40 mg tablet daily Active gabapentin (NEURONTIN) 100 mg capsule 01/01/2023 Active gabapentin (NEURONTIN) 400 mg capsule 1 capsule (400 mg total) every 8 hours Active meclizine (ANTIVERT) 25 mg tablet every 8 hours Active omeprazole (PriLOSEC) 40 mg capsule 1 capsule (40 mg total) daily Active primidone (MYSOLINE) 50 mg tablet Take by mouth nightly 10/24/2022 Active rosuvastatin (CRESTOR) 5 mg tablet Take 1 tablet (5 mg total) by mouth every other day 12/05/2022 Active topiramate (TOPAMAX) 25 mg tablet Take 1 tablet (25 mg total) by mouth 2 (two) times a day 10/05/2022 Active benzonatate (TESSALON) 200 mg capsuleIndicati ons:Acute cough Take 1 capsule (200 mg total) by mouth 3 (three) times a day as needed for cough 30 capsule 01/08/2023 Active Active Problems Problem Noted Date Diagnosed Date Cervicalgia 03/21/2021 Vertigo 03/21/2021 Social History Tobacco Use Types Packs/Day Years Used Date Smoking Tobacco: Never Assessed Comments Unknown Sex and Gender Information Value Date Recorded Sex Assigned at Not on file Legal Sex Female 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
--- OUTSIDE RECORDS SUMMARY | 2024-06-25 00:38 | XMS_ITS | Clinical Summary ---
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 Gender Identity Not on file Sexual Orientation Not on file Obstetrics History Last Filed Vital Signs Vital Sign Reading [...] 01/08/2023 8:27 AM CDT Plan of Treatment Health Maintenance Due Date Last Done Comments Colon Cancer Screening-Colonoscopy 1948 Depression Screening 1948 Fall Risk Assessment 1948 Hepatitis C Screening 1948 Osteoporosis Screening-Bone Density Scan 1948 DTaP/Tdap/Td Vaccine (1 - Tdap) 1959 Hepatitis B Screening 1966 Pneumococcal vaccine 65+ (1 of 1 - PCV) 2013 Well Visit 65+ 2013 Zoster Vaccine (2 of 2) 01/23/2023 11/28/2022 Covid-19 Vaccine (2023-2 5 season) 2024 05/16/2022, 02/22/2022, 05/02/2021, Additional history exists Influenza Vaccine (#1) 2024 2, 04/17/2021, 03/24/2020, [place] [address] MEDICARE COMMERCIAL GENERIC MEDICARE COMMERCIAL GENERIC Care Teams Beer Runner Relationship Specialty Start Date End Date Sarah Baker PA [address] [place], [place] [id number] PCP - General Family Practice 01/08/23
== END 2024-06-21 10:05 | disposition home or self-care (01) ==
PROVIDERS: Emergency Provider Nurse Practitioner Family; PCP Physician Assistant Medical
DX: J06.9 Acute upper respiratory infection, unspecified (principal); Z20.822 Contact with and (suspected) exposure to COVID-19; E78.5 Hyperlipidemia, unspecified; K21.9 Gastro-esophageal reflux disease without esophagitis; G62.9 Polyneuropathy, unspecified; Z98.42 Cataract extraction status, left eye; Z98.41 Cataract extraction status, right eye; Z87.891 Personal history of nicotine dependence
CPT/HCPCS: 87426; 87804; 99212; G0463